=== PATIENT | male | born 1955 | race Caucasian/White ===

== ENCOUNTER 2016-06-17 11:16 | Emergency (ER) | payer OTHER ==
[2016-06-17 12:17] VITALS: RESP 18
--- NOTE | 2016-06-17 13:12 | ED ---
General Adult HPI - General Chief complaint: ENT Stated complaint: EAR CONGESTION Time Seen by Provider: 06/17/16 13:04 Source: patient, RN notes reviewed Mode of arrival: ambulatory Limitations: no limitations - History of Present Illness Initial comments: This is a 60-year-old male who presents with ear discomfort. Patient states he was sick with an upper respiratory infection last week and this has improved but he states his left ear feels like there is "wind blowing in it". Patient denies any otalgia or hearing loss or feeling of fullness in the ears. Patient denies any cough but admits to some mild lingering congestion.Patient denies any recent fever, chills, shortness breath, chest pain, abdominal pain, nausea/ vomiting/diarrhea, back pain, numbness, tingling, hematuria, headache, or visual changes, or any other complaints. - Related Data Home Medications Medication Instructions Recorded Confirmed Albuterol Inhaler [Ventolin Hfa 1 - 2 puff INHALATION Q6HR PRN 06/17/16 06/17/16 Inhaler] Previous Rx's Medication Instructions Recorded Fluticasone Nasal Marshall [Flonase 1 - 2 spray EA NOSTRIL DAILY #1 06/17/16 Nasal Marshall] bottle Allergies Allergy/AdvReac Type Severity Reaction Status Date / Time aspirin Allergy Swelling Verified 06/17/16 12:17 Review of Systems ROS Statement: Those systems with pertinent positive or pertinent negative responses have been documented in the HPI. ROS Other: All systems not noted in ROS Statement are negative. Past Medical History Past Medical History: No Reported History History of Any Multi-Drug Resistant Organisms: None Reported Past Surgical History: No Surgical Hx Reported Past Psychological History: No Psychological Hx Reported Smoking Status: Current every day smoker Past Alcohol Use History: None Reported Past Drug Use History: None Reported General Exam - General Exam Comments Initial Comments: General: The patient is awake and alert, in no distress, and does not appear acutely ill. Eye: Pupils are equal, round and reactive to light, extra-ocular movements are intact. No nystagmus. There is normal conjunctiva bilaterally. No signs of icterus. Ears: TMs pink and pearly with intact cone of light bilaterally. Normal external ear canals Nose: Nasal turbinates pink and moist Mouth and throat: There are moist mucous membranes and no oral lesions. Neck: The neck is supple, there is no tenderness or JVD. Cardiovascular: There is a regular rate and rhythm. No murmur, rub or gallop is appreciated. Respiratory: Lungs are clear to auscultation, respirations are non-labored, breath sounds are equal. No wheezes, stridor, rales, or rhonchi. Musculoskeletal: Normal ROM, no tenderness. Strength 5/5. Sensation intact. Radial pulses equal bilaterally 2+. Neurological: A&O x 3. CN II-XII intact, There are no obvious motor or sensory deficits. Coordination appears grossly intact. Speech is normal. Skin: Skin is warm and dry and no rashes or lesions are noted. Psychiatric: Cooperative, appropriate mood & affect, normal judgment. Limitations: no limitations Course Vital Signs 06/17/16 12:14 Temperature 98.2 F Pulse Rate 89 Respiratory 18 Rate Blood Pressure 163/85 O2 Sat by Pulse 96 Oximetry Medical Decision Making - Medical Decision Making This is a 60-year-old male who presents with left ear discomfort. On physical exam tympanic membranes are pink and pearly with intact cone of light bilaterally. Normal external ear canals. Patient is afebrile. I discussed grmi-etl-gzqqhbu decongestants and Flonase nasal spray to help with patient's symptoms. I discussed return parameters. Discussed that patient should follow up with PCP in one to 2 days or return to the [facility] for any worsening symptoms or for any further concerns. Patient was receptive to this plan and patient will be discharged home. Disposition Clinical Impression: Congestion of left ear Disposition: HOME SELF-CARE Condition: Good Instructions: Earache (ED) Additional Instructions: Please use Flonase nasal spray as prescribed. May use [id number] decongestants for additional symptom relief.Please use medication as discussed. Please follow-up with family doctor in the next 2 days of symptoms have not improved. Please return to emergency room if the symptoms increase or worsen or for any other concerns. Prescriptions: Fluticasone Nasal Marshall [Flonase Nasal Marshall] 1 - 2 spray EA NOSTRIL DAILY #1 bottle Referrals: Yaquelin Rao MD [Primary Care Provider] - 1-2 days Time of Disposition: 13:12
[2016-06-17 13:43] VITALS: BP 158/72; PULSE 78; TEMP 98
== END 2016-06-17 13:35 | disposition home or self-care (01) ==
LOC: EC 11:16
DX: H83.8X2 Other specified diseases of left inner ear (principal); Z88.6 Allergy status to analgesic agent; F17.200 Nicotine dependence, unspecified, uncomplicated
CPT/HCPCS: 99282

== ENCOUNTER 2016-07-13 17:17 | Emergency (ER) | payer OTHER ==
[2016-07-13 17:29] VITALS: BP 147/89; PULSE 88; RESP 18; TEMP 97
[2016-07-13] MEDS ORDERED: DIPH,PERTUS(ACELL)TETVAC-LF 0.5 ML VIAL IM ONE (17:43)
--- NOTE | 2016-07-13 17:47 | ED ---
Head Injury HPI - General Chief complaint: Head Injury Stated complaint: Head injury, [facility] Time Seen by Provider: 07/13/16 17:36 Source: patient Mode of arrival: ambulatory Limitations: no limitations - History of Present Illness Initial comments: 60-year-old male patient presents emergency Department after experiencing a headache injury at work. Patient states he was pushing down a large coil when it came back and struck him in the face. The patient was struck over the area of the right eye. Patient is complaining of a right-sided headache, but denies any other symptoms. Patient denies any loss of consciousness but states he was dazed for a short time after this. Patient denies any nausea, vomiting, neck pain, back pain, dizziness, weakness, chest pain, or shortness of breath. Patient also denies any visual disturbance, double vision, blurred vision, or floaters. Patient's last tetanus was 5 years ago. GCS is 15. Denies any use of anticoagulation. Place: work - Related Data Home Medications Medication Instructions Recorded Confirmed Albuterol Sulfate [Proair Hfa] 1 - 2 puff INHALATION RT-Q6H PRN 07/13/16 Ofloxacin 0.3% Otic Soln [Floxin 5 drops LEFT EAR BID 07/13/16 07/13/16 0.3% Otic Soln] Allergies/Adverse reactions: Allergies Allergy/AdvReac Type Severity Reaction Status Date / Time aspirin Allergy Swelling Verified 07/13/16 17:56 Review of Systems ROS Statement: Those systems with pertinent positive or pertinent negative responses have been documented in the HPI. ROS Other: All systems not noted in ROS Statement are negative. Past Medical History Past Medical History: No Reported History History of Any Multi-Drug Resistant Organisms: None Reported Past Surgical History: No Surgical Hx Reported Past Psychological History: No Psychological Hx Reported Smoking Status: Current every day smoker Past Alcohol Use History: None Reported Past Drug Use History: None Reported General Exam Limitations: no limitations General appearance: alert, in no apparent distress Head exam: Present: normocephalic, normal inspection. Absent: atraumatic (Soft tissue swelling over the right maxillary area, small abrasion to the right nasal bridge.) Eye exam: Present: normal appearance, PERRL, EOMI. Absent: scleral icterus, conjunctival injection, periorbital swelling ENT exam: Present: normal exam, normal oropharynx, mucous membranes moist Neck exam: Present: normal inspection, full ROM. Absent: tenderness, meningismus, lymphadenopathy Respiratory exam: Present: normal lung sounds bilaterally. Absent: respiratory distress, wheezes, rales, rhonchi, stridor Cardiovascular Exam: Present: regular rate, normal rhythm, normal heart sounds. Absent: systolic murmur, diastolic murmur, rubs, gallop, clicks Back exam: Present: normal inspection. Absent: tenderness Neurological exam: Present: alert, oriented X3, CN II-XII intact Psychiatric exam: Present: normal affect, normal mood Skin exam: Present: warm, dry, intact, normal color. Absent: rash Course Vital Signs 07/13/16 17:26 Temperature 97.0 F L Pulse Rate 88 Respiratory 18 Rate Blood Pressure 147/89 O2 Sat by Pulse 95 Oximetry Medical Decision Making - Medical Decision Making 6-year-old male patient presented for evaluation after head and facial injury. CT of the facial bones and brain were negative for any acute fracture or intracranial abnormality. Neuro exam was within normal limits. Patient will be discharged home with instructions to follow-up for recheck with [facility] services in 1-2 days. Patient also instructed to return for any new, worsening, or concerning symptoms. Patient's tetanus was updated. Patient instructed to take [id number] Tylenol for pain control. Patient instructed to remain home for the rest of the day, not to return to work until headache symptoms improve. Patient verbalizes understanding and agrees this plan. - Radiology Data Radiology results: report reviewed, image reviewed CT of the facial bones shows a margins are intact. Maxilla is intact. There is mild mucosal thickening in the ethmoid and sphenoid sinus. There is bilateral patency of the ostiomeatal complex. There is no sign a retro-orbital mass. The globes are symmetric. The zygomatic arches appear normal. Nasal bone is intact. CT of the brain without contrast shows no acute intracranial abnormality. Disposition Clinical Impression: Head injury, Facial injury, Abrasion of nose Disposition: HOME SELF-CARE Condition: Stable Instructions: Head Injury (ED) Additional Instructions: Follow-up for recheck with [facility] services if symptoms persist. Return for any new, worsening, or concerning symptoms. Referrals: Yaquelin Rao MD [Primary Care Provider] - 1-2 days Time of Disposition: 18:40
--- NOTE | 2016-07-13 18:28 | CT ---
EXAMINATION TYPE: CT brain wo con DATE OF EXAM: 07/13/2016 6:23 PM COMPARISON: NONE HISTORY: Trauma to the Right side of the face today. CT DLP: 1682 mGycm Automated exposure control for dose reduction was used. FINDINGS: Ventricles appear normal. There is no mass effect nor midline shift. There is no evidence of intracra nial hemorrhage. There is some mucosal thickening in the ethmoid sinus and sphenoid sinus. The calvar ium is intact. I see no fracture. IMPRESSION: There is evidence of sinusitis. Otherwise negative unenhanced head CT scan.
--- NOTE | 2016-07-13 18:30 | CT ---
EXAMINATION TYPE: CT facial bones wo con DATE OF EXAM: 07/13/2016 6:23 PM COMPARISON: NONE HISTORY: Trauma to the Right side of the face today. CT DLP: 1682 mGycm Automated exposure control for dose reduction was used. TECHNIQUE: CT scan of the sinuses is performed without contrast, axial images are obtained, coronal r eformatted images are also reviewed. FINDINGS: The orbital margins are intact. Maxilla is intact. There is mild mucosal thickening in the ethmoid and sphenoid sinus. There is bilateral patency of the osteal metal complex. There is no sign of retro-orbital mass. The globes are symmetric. The zygomatic arches appear normal. Nasal bone is in tact. Maxilla is intact. IMPRESSION: There is evidence for mild sinusitis. No fracture seen.
== END 2016-07-13 19:25 | disposition home or self-care (01) ==
LOC: EC 17:17
DX: S00.31XA Abrasion of nose, initial encounter (principal); S09.90XA Unspecified injury of head, initial encounter; F17.200 Nicotine dependence, unspecified, uncomplicated; Z23 Encounter for immunization; Z88.6 Allergy status to analgesic agent; W22.8XXA Striking against or struck by other objects, initial encounter; Y92.89 Other specified places as the place of occurrence of the external cause; Y99.0 Civilian activity done for income or pay
CPT/HCPCS: 70450; 70486; 90471; 90715; 99284

== ENCOUNTER 2017-01-11 19:43 | Emergency (ER) | payer OTHER ==
[2017-01-11 19:49] VITALS: RESP 18
[2017-01-11] MEDS ORDERED: SODIUM CHLORIDE 0.9% 1,000 ML IV STA ×2 (20:01)
[2017-01-11 20:24] LABS: Basophils # (A) 0.1 k/uL (0-0.2); Basophils % (A) 1 %; CH 31.7; CHCM 33.7; Eosinophils # (A) 0.2 k/uL (0-0.7); Eosinophils % (A) 3 %; HCT 48.2 % (39.0-53.0); HDW 2.54; HGB 16.1 gm/dL (13.0-17.5); Luc # (Auto) 0.21; Luc % (Auto) 2; Lymphocytes # (A) 3.1 k/uL (1.0-4.8); Lymphocytes % (A) 34 %; MCH 31.6 pg (25.0-35.0); MCHC 33.5 g/dL (31.0-37.0); MCV 94.3 fL (80.0-100.0); Mean Platelet Volume 6.8; Monocytes # (A) 0.4 k/uL (0-1.0); Monocytes % (A) 4 %; Neutrophils % (A) 56 %; RBC 5.11 m/uL (4.30-5.90); RDW 13.7 % (11.5-15.5); WBC (Perox) 8.23
--- NOTE | 2017-01-11 20:25 | ED ---
General Adult HPI - General Source: patient, RN notes reviewed, old records reviewed Mode of arrival: wheelchair Limitations: no limitations <Carloz Hartmann - Last Filed: 01/11/17 22:32> <Carloz Grimes - Last Filed: 01/11/17 23:06> - General Chief complaint: Dizziness Stated complaint: dizzy/off balance Time Seen by Provider: 01/11/17 19:59 - History of Present Illness Initial comments: This is a 61-year-old male to the ER for evaluation of dizziness. Patient states explains that this is as an episode of the room spinning around and he thought he was going to lose his balance. Patient has history of smoking and no other cardiac risk factors no history of stroke no history of heart disease. No recent trauma. Patient states his dizziness have been occasionally having on occasion for about the past month. Patient does admit to some inner ear issues and some up overall sinus issues and he seen an ENT in the past with no significant help to his issues. Patient denies nausea or vomiting. Denies headache. Denies any symptoms at this time (Carloz Hartmann) - Related Data Home Medications Medication Instructions Recorded Confirmed Albuterol Sulfate [Proair Hfa] 1 - 2 puff INHALATION RT-Q6H PRN 01/11/17 Previous Rx's Medication Instructions Recorded Amoxic-Pot Clav 875-125Mg 1 tab PO Q12HR #20 tablet 01/11/17 [Augmentin 875-125] Cetirizine HCl/Pseudoephedrine 1 each PO BID #20 tab.er.12h 01/11/17 [Zyrtec-D Tablet] Meclizine [Antivert] 25 mg PO TID PRN #30 tab 01/11/17 Allergies Allergy/AdvReac Type Severity Reaction Status Date / Time aspirin Allergy Swelling Verified 01/11/17 20:10 Review of Systems ROS Other: All systems not noted in ROS Statement are negative. <Carloz Hartmann - Last Filed: 01/11/17 22:32> ROS Other: All systems not noted in ROS Statement are negative. <Carloz Grimes - Last Filed: 01/11/17 23:06> ROS Statement: Those systems with pertinent positive or pertinent negative responses have been documented in the HPI. Past Medical History Past Medical History: No Reported History History of Any Multi-Drug Resistant Organisms: None Reported Past Surgical History: No Surgical Hx Reported Past Psychological History: No Psychological Hx Reported Smoking Status: Current every day smoker Past Alcohol Use History: None Reported Past Drug Use History: None Reported <Carloz Hartmann - Last Filed: 01/11/17 22:32> General Exam Limitations: no limitations General appearance: alert, in no apparent distress Head exam: Present: atraumatic, normocephalic, normal inspection Eye exam: Present: normal appearance, PERRL, EOMI. Absent: scleral icterus, conjunctival injection, periorbital swelling ENT exam: Present: normal exam, mucous membranes moist Neck exam: Present: normal inspection. Absent: tenderness, meningismus, lymphadenopathy Respiratory exam: Present: normal lung sounds bilaterally. Absent: respiratory distress, wheezes, rales, rhonchi, stridor Cardiovascular Exam: Present: regular rate, normal rhythm, normal heart sounds. Absent: systolic murmur, diastolic murmur, rubs, gallop, clicks GI/Abdominal exam: Present: soft, normal bowel sounds. Absent: distended, tenderness, guarding, rebound, rigid Extremities exam: Present: normal inspection, full ROM, normal capillary refill. Absent: tenderness, pedal edema, joint swelling, calf tenderness Back exam: Present: normal inspection Neurological exam: Present: alert, oriented X3, CN II-XII intact Psychiatric exam: Present: normal affect, normal mood Skin exam: Present: warm, dry, intact, normal color. Absent: rash <Carloz Hartmann - Last Filed: 01/11/17 22:32> Course <Carloz Hartmann - Last Filed: 01/11/17 22:32> <Carloz Grimes - Last Filed: 01/11/17 23:06> Vital Signs 01/11/17 01/11/17 01/11/17 19:46 20:25 21:18 Temperature 97 F L 97.2 F L Pulse Rate 89 68 70 Respiratory 18 18 18 Rate Blood Pressure 163/74 138/78 135/84 O2 Sat by Pulse 95 95 95 Oximetry 01/11/17 01/11/17 21:33 22:55 Temperature 97.5 F L Pulse Rate 64 73 Respiratory 18 18 Rate Blood Pressure 140/88 151/90 O2 Sat by Pulse 96 95 Oximetry - Reevaluation(s) Reevaluation #1: 01/11/17 20:24 We're able to get patient up to ambulate, no dizziness, able to walk without ataxia (Carloz Hartmann) EKG Findings - EKG Comments: EKG Findings:: EKG shows normal sinus rhythm rate of 73, WV 146, QRS 92, QTC 445 <Carloz Hartmann - Last Filed: 01/11/17 22:32> Medical Decision Making - Lab Data Result diagrams: 01/11/17 20:16 01/11/17 20:16 <Carloz Hartmann - Last Filed: 01/11/17 22:32> - Lab Data Result diagrams: 01/11/17 20:16 01/11/17 20:16 <Carloz Grimes - Last Filed: 01/11/17 23:06> - Medical Decision Making CT and CTA show no acute abnormalities. Patient is able to ambulate in the emergency department without problems. Patient has no symptoms currently. Patient wants to be discharged home to follow-up with his primary medical care doctor. (Carloz Grimes) - Lab Data Lab Results 01/11/17 01/11/17 01/11/17 Range/Units 20:16 20:16 20:16 WBC 9.0 (3.8-10.6) k/uL RBC 5.11 (4.30-5.90) m/uL Hgb 16.1 (13.0-17.5) gm/dL Hct 48.2 (39.0-53.0) % MCV 94.3 (80.0-100.0) fL MCH 31.6 (25.0-35.0) pg MCHC 33.5 (31.0-37.0) g/dL RDW 13.7 (11.5-15.5) % Plt Count 191 (150-450) k/uL Neutrophils % 56 % Lymphocytes % 34 % Monocytes % 4 % Eosinophils % 3 % Basophils % 1 % Neutrophils # 5.0 (1.3-7.7) k/uL Lymphocytes # 3.1 (1.0-4.8) k/uL Monocytes # 0.4 (0-1.0) k/uL Eosinophils # 0.2 (0-0.7) k/uL Basophils # 0.1 (0-0.2) k/uL PT (9.0-12.0) sec INR (<1.2) APTT (22.0-30.0) sec Sodium 137 (137-145) mmol/L Potassium 3.9 (3.5-5.1) mmol/L Chloride 104 (98-107) mmol/L Carbon Dioxide 19 L (22-30) mmol/L Anion Gap 14 mmol/L BUN 24 H (9-20) mg/dL Creatinine 1.13 (0.66-1.25) mg/dL Est GFR (MDRD) Af Amer >60 (>60 ml/min/1.73 sqM) Est GFR (MDRD) Non-Af >60 (>60 ml/min/1.73 sqM) Glucose 94 (74-99) mg/dL Calcium 9.4 (8.4-10.2) mg/dL Phosphorus 4.0 (2.5-4.5) mg/dL Magnesium 2.0 (1.6-2.3) mg/dL Total Bilirubin 0.2 (0.2-1.3) mg/dL AST 26 (17-59) U/L ALT 50 (21-72) U/L Alkaline Phosphatase 68 (38-126) U/L Total Creatine Kinase 115 (55-170) U/L CK-MB (CK-2) 1.4 (0.0-2.4) ng/mL CK-MB (CK-2) Rel Index 1.2 Troponin I <0.012 (0.000-0.034) ng/mL Total Protein 7.2 (6.3-8.2) g/dL Albumin 4.5 (3.5-5.0) g/dL TSH 2.940 (0.465-4.680) mIU/L 01/11/ Range/Units 20:16 WBC (3.8-10.6) k/uL RBC (4.30-5.90) m/uL Hgb (13.0-17.5) gm/dL Hct (39.0-53.0) % MCV (80.0-100.0) fL MCH (25.0-35.0) pg MCHC (31.0-37.0) g/dL RDW (11.5-15.5) % Plt Count (150-450) k/uL Neutrophils % % Lymphocytes % % Monocytes % % Eosinophils % % Basophils % % Neutrophils # (1.3-7.7) k/uL Lymphocytes # (1.0-4.8) k/uL Monocytes # (0-1.0) k/uL Eosinophils # (0-0.7) k/uL Basophils # (0-0.2) k/uL PT 10.6 (9.0-12.0) sec INR 1.0 (<1.2) APTT 23.3 (22.0-30.0) sec Sodium (137-145) mmol/L Potassium (3.5-5.1) mmol/L Chloride (98-107) mmol/L Carbon Dioxide (22-30) mmol/L Anion Gap mmol/L BUN (9-20) mg/dL Creatinine (0.66-1.25) mg/dL Est GFR (MDRD) Af Amer (>60 ml/min/1.73 sqM) Est GFR (MDRD) Non-Af (>60 ml/min/1.73 sqM) Glucose (74-99) mg/dL Calcium (8.4-10.2) mg/dL Phosphorus (2.5-4.5) mg/dL Magnesium (1.6-2.3) mg/dL Total Bilirubin (0.2-1.3) mg/dL AST (17-59) U/L ALT (21-72) U/L Alkaline Phosphatase (38-126) U/L Total Creatine Kinase (55-170) U/L CK-MB (CK-2) (0.0-2.4) ng/mL CK-MB (CK-2) Rel Index Troponin I (0.000-0.034) ng/mL Total Protein (6.3-8.2) g/dL Albumin (3.5-5.0) g/dL TSH (0.465-4.680) mIU/L Disposition <Carloz Hartmann - Last Filed: 01/11/17 22:32> Time of Disposition: 23:06 <Carloz Grimes - Last Filed: 01/11/17 23:06> Clinical Impression: Vertigo Disposition: HOME SELF-CARE Condition: Good Instructions: Vertigo (ED) Prescriptions: Amoxic-Pot Clav 875-125Mg [Augmentin 875-125] 1 tab PO Q12HR #20 tablet Cetirizine HCl/Pseudoephedrine [Zyrtec-D Tablet] 1 each PO BID #20 tab.er.12h Meclizine [Antivert] 25 mg PO TID PRN #30 tab PRN Reason: Vertigo Referrals: Yaquelin Rao MD [Primary Care Provider] - 1-2 days
[2017-01-11 20:30] LABS: Partial Thromboplastin Time 23.3 sec (22.0-30.0); Prothrombin Time 10.6 sec (9.0-12.0)
[2017-01-11 20:41] LABS: ALT 50 U/L (21-72); AST 26 U/L (17-59); Alkaline Phosphatase 68 U/L (38-126); Anion Gap 14 mmol/L; Blood Urea Nitrogen 24 mg/dL (9-20); Calcium 9.4 mg/dL (8.4-10.2); Carbon Dioxide 19 mmol/L (22-30); Chloride 104 mmol/L (98-107); Glucose 94 mg/dL (74-99); Non-African American GFR(MDRD) >60 (>60 ml/min/1.73 sqM); Potassium 3.9 mmol/L (3.5-5.1); Sodium 137 mmol/L (137-145); Total Bilirubin 0.2 mg/dL (0.2-1.3); Total Protein 7.2 g/dL (6.3-8.2)
[2017-01-11 20:47] LABS: Creatine Kinase 115 U/L (55-170)
[2017-01-11 21:00] LABS: Creatine Kinase MB 1.4 ng/mL (0.0-2.4); Troponin I <0.012 ng/mL (0.000-0.034)
[2017-01-11] MEDS ORDERED: RX INFO: IV CONTRAST WAS GIVEN 1 EACH MISC MISCELLANE PRN (21:49)
--- NOTE | 2017-01-11 22:50 | CT ---
EXAMINATION TYPE: CT brain wo con DATE OF EXAM: 01/11/2017 COMPARISON: 07/13/2016 HISTORY: Near syncopal episodes for the last two days without injury CT DLP: 1090.4 mGycm Automated exposure control for dose reduction was used. FINDINGS: Ventricles and sulci appear normal. There is no mass effect nor midline shift. There is no sign of in tracranial hemorrhage. The calvarium appears intact. There is mild mucosal thickening in the sphenoid and ethmoid sinuses. IMPRESSION: NEGATIVE CT SCAN OF THE BRAIN. SINUSITIS IS UNCHANGED COMPARED TO LAST EXAM.
--- NOTE | 2017-01-11 22:54 | CT ---
EXAMINATION TYPE: CT angio head neck DATE OF EXAM: 01/11/2017 HISTORY: Near syncopal episodes for the last two days without injury COMPARISON: NONE CT DLP: 416.5 mGycm. Automated Exposure Control for Dose Reduction was Utilized. TECHNIQUE: CTA scan of the neck is performed with IV Contrast, patient injected with 65 mL of Omnipa que 350, axial images are obtained, coronal and sagittal reformatted images are reviewed. Three-D rec onstructed images are created on an independent workstation and reviewed. FINDINGS: There is normal branching pattern of the great vessels on the aortic arch. There is bilateral arteria l flow in the vertebral arteries. There is arterial flow in the common internal and external carotid arteries bilaterally. There is some mild plaque formation at the right carotid artery bifurcation. Th ere is minimal plaque also at the left carotid artery bifurcation. There is lumen narrowing of 10-15% at the origins of both internal carotid arteries. There is no evidence of dissection. There is arterial flow in the anterior middle and posterior cerebral arteries. There is arterial flow in the vertebrobasilar artery system. Left vertebral artery is larger than the right. There is no ma ss effect. There is normal contrast opacification of the venous sinuses. There is no evidence of intr acranial aneurysm or stenosis. CONCLUSION: Minimal plaque formation at the carotid artery bifurcations with 10-15% stenosis. Otherwise negative CT angiogram of the neck. Negative CT angiogram of the brain.
[2017-01-11 22:57] VITALS: BP 151/90; PULSE 73; TEMP 97.5
== END 2017-01-11 23:13 | disposition home or self-care (01) ==
LOC: EC 19:43
DX: R42 Dizziness and giddiness (principal); F17.200 Nicotine dependence, unspecified, uncomplicated; Z88.6 Allergy status to analgesic agent
CPT/HCPCS: 99285 ×2; 96360 ×2; 96361 ×3; 36415; 93005; 80053; 82550; 82553; 83735; 84100; 84443; 84484; 85025; 85610; 85730; 70496; 70450; 70498; Q9967

== ENCOUNTER 2020-12-16 11:51 | Emergency (ER) | payer MEDICARE, OTHER ==
[2020-12-16] MEDS ORDERED: DIPH,PERTUS(ACELL)TETVAC-LF 0.5 ML VIAL IM ONE (12:22)
--- NOTE | 2020-12-16 12:25 | ED ---
General Adult HPI - General Source: patient, RN notes reviewed Mode of arrival: ambulatory Limitations: no limitations <Neel Lanier - Last Filed: 12/16/20 12:23> - General Source: patient, RN notes reviewed <Roe Delarosa - Last Filed: 12/16/20 16:11> - General Stated complaint: Finger lac Time Seen by Provider: 12/16/20 12:17 - History of Present Illness Initial comments: 65-year-old male presents emergency Department with chief complaint of left hand second digit laceration. Patient states that he was using a saw the board kicked causing him to cut his finger. He is unsure when his last tetanus was. Patient states she has full range of motion he has some throbbing pain. Patient offers no other complaints. Patient is right-hand dominant. (Neel Lanier) Well-appearing 65-year-old male gentleman that presents to the emergency room with complaints of lacerating his left index finger on a saw today. He states that he did irrigate the wound at home and used peroxide. He has full range of motion with the finger. He denies any other injuries. He states that he recently recovering from a covid in his primary care doctor has prescribed him an inhaler which he keeps with him. He denies any chest pain or shortness of breath. (Roe Delarosa) - Related Data Home Medications Medication Instructions Recorded Confirmed Albuterol Sulfate [Proair Hfa] 1 - 2 puff INHALATION RT-Q6H PRN 01/11/17 01/11/17 Previous Rx's Medication Instructions Recorded Amoxic-Pot Clav 875-125Mg 1 tab PO Q12HR #20 tablet 01/11/17 [Augmentin 875-125] Cetirizine HCl/Pseudoephedrine 1 each PO BID #20 tab.er.12h 01/11/17 [Zyrtec-D Tablet] Meclizine [Antivert] 25 mg PO TID PRN #30 tab 01/11/17 Cephalexin [Keflex] 500 mg PO Q6HR 5 Days #20 cap 12/16/20 Allergies Allergy/AdvReac Type Severity Reaction Status Date / Time aspirin Allergy Swelling Verified 12/16/20 12:22 Review of Systems ROS Other: All systems not noted in ROS Statement are negative. <Dedoe,Neel M - Last Filed: 12/16/20 12:23> ROS Other: All systems not noted in ROS Statement are negative. <Roe Delarosa - Last Filed: 12/16/20 16:11> ROS Statement: Those systems with pertinent positive or pertinent negative responses have been documented in the HPI. Past Medical History Past Medical History: No Reported History History of Any Multi-Drug Resistant Organisms: None Reported Past Surgical History: No Surgical Hx Reported Past Psychological History: No Psychological Hx Reported Past Alcohol Use History: None Reported Past Drug Use History: None Reported <ZachsherlyNeel - Last Filed: 12/16/20 12:23> General Exam General appearance: alert, in no apparent distress Head exam: Present: atraumatic, normocephalic, normal inspection Eye exam: Present: normal appearance, PERRL, EOMI. Absent: scleral icterus, conjunctival injection, periorbital swelling ENT exam: Present: normal exam, normal oropharynx, mucous membranes moist Neck exam: Present: full ROM Respiratory exam: Present: normal lung sounds bilaterally (Occasional wheeze). Absent: respiratory distress, wheezes, rales, rhonchi, stridor Cardiovascular Exam: Present: regular rate, normal rhythm, normal heart sounds. Absent: systolic murmur, diastolic murmur, rubs, gallop, clicks Left Hand Wrist exam: Present: tenderness, laceration (1 cm skin avulsion to the patient's left index finger medial aspect). Absent: deformity, erythema, amputation, subungual hematoma Vascular: Present: normal capillary refill. Absent: vascular compromise Neurological exam: Present: alert, oriented X3, normal gait Psychiatric exam: Present: normal affect, normal mood Skin exam: Present: warm, dry, intact, normal color. Absent: rash <Roe Delarosa - Last Filed: 12/16/20 16:11> Course Vital Signs 12/16/20 12/16/20 12:22 15:47 Temperature 97.9 F Pulse Rate 89 81 Respiratory 18 18 Rate Blood Pressure 157/104 165/87 O2 Sat by Pulse 93 L 95 Oximetry Medical Decision Making <Roe Delarosa - Last Filed: 12/16/20 16:11> - Medical Decision Making Patient's tetanus shot was updated at this visit. X-ray was negative for fracture. He did cleanse the wound prior to arrival in the emergency room with water and peroxide. Due to the loss of tissue there is no way to approximate the wound. There was Gelfoam applied and a nonadherent dressing. He will be prescribed antibiotics and follow up with his primary care doctor. His blood pressure was elevated at this visit. He states he does not have high blood pressure. He states he does see Dr. Maxwell has never had elevated blood pressure in the past. He was directed to follow up with Dr. Maxwell for elevation of elevated blood pressure in the emergency room today. Case discussed with Dr. Louis (Roe Delaroas) Disposition <Neel Lanier - Last Filed: 12/16/20 12:23> Is patient prescribed a controlled substance at d/c from ED?: No <Roe Delarosa - Last Filed: 12/16/20 16:11> Clinical Impression: Laceration Disposition: HOME SELF-CARE Condition: Good Instructions (If sedation given, give patient instructions): Finger Laceration (ED) Additional Instructions: Take antibiotics as prescribed. Keep your finger clean and dry. Follow-up with your primary care doctor in 1 week. Return to the emergency room with any new or worsening symptoms including pain, signs of infection including drainage, redness or fever. Prescriptions: Cephalexin [Keflex] 500 mg PO Q6HR 5 Days #20 cap Referrals: None,Stated [REFERRING] - 1-2 days
[2020-12-16 12:26] VITALS: RESP 18; TEMP 97.9
--- NOTE | 2020-12-16 13:57 | XR ---
EXAMINATION TYPE: XR finger LT DATE OF EXAM: 12/16/2020 CLINICAL HISTORY: pain Left second digit. TECHNIQUE: 3 views of the Left second digit are submitted. COMPARISON: None FINDINGS: No displaced fracture is seen with certainty. Joint spaces are well-preserved. Soft tissue laceration noted without radiopaque foreign body. IMPRESSION: No acute displaced fracture or dislocation.
[2020-12-16] MEDS: LIDOCAINE 1% INJ 10MG/ML (20 ML MDV) SQ ONE ×2 (14:44→15:52)
[2020-12-16] MEDS ORDERED: GELATIN SPONGE,ABSORB (SMALL) 1 EACH SPONGE TOPICAL STA (15:22)
[2020-12-16 15:52] VITALS: BP 165/87; PULSE 81
== END 2020-12-16 15:48 | disposition home or self-care (01) ==
LOC: EC 11:51
DX: S61.211A Laceration without foreign body of left index finger without damage to nail, initial encounter (principal); W31.2XXA Contact with powered woodworking and forming machines, initial encounter; Z23 Encounter for immunization
CPT/HCPCS: 90471; 90715; 99282

== ENCOUNTER 2022-12-10 22:47 | Emergency (ER) | payer MEDICARE ==
[2022-12-10] MEDS ORDERED: ALBUTEROL NEBULIZED 2.5 MG/3 ML INHALATION STA (23:24)
[2022-12-10] MEDS ORDERED: dexAMETHasone 2 MG TAB PO STA (23:24)
[2022-12-10] MEDS ORDERED: IPRATROPIUM 0.5 MG/2.5 ML NEBU INHALATION STA (23:24)
--- NOTE | 2022-12-10 23:53 | XR ---
EXAM: XR Chest, 2 Views CLINICAL HISTORY: ITS.REASON XR Reason: CP TECHNIQUE: Frontal and lateral views of the chest. COMPARISON: No relevant prior studies available. FINDINGS: Lungs: Unremarkable. No consolidation. Pleural space: Unremarkable. No pneumothorax. Heart: Unremarkable. No cardiomegaly. Mediastinum: Unremarkable. Bones/joints: Unremarkable. IMPRESSION: Normal chest x-rays.
--- NOTE | 2022-12-11 00:51 | ED ---
General Adult HPI - General Chief complaint: Upper Respiratory Infection Stated complaint: congestion Time Seen by Provider: 12/10/22 22:58 Source: patient Mode of arrival: ambulatory Limitations: no limitations - History of Present Illness Initial comments: This is a 67-year-old male with no past medical history presents emergency department for a cough and congestion. The patient stated that on he experienced a head cold and he did see his private care physician where he was given levofloxacin as well as a Medrol Dosepak for possible pneumonia. The patient did state that he had continued coughing and therefore came to the emergency department for evaluation. The patient denied any fevers, chills as well as any nausea and vomiting. The patient did state that he had some mild wheezing while laying flat but stated that it improved with an albuterol inhaler. The patient denied any other recent sick contacts. - Related Data Home Medications Medication Instructions Recorded Confirmed Albuterol Sulfate [Proair Hfa] 1 - 2 puff INHALATION RT-Q6H PRN 01/11/17 01/11/17 Previous Rx's Medication Instructions Recorded Amoxic-Pot Clav 875-125Mg 1 tab PO Q12HR #20 tablet 01/11/17 [Augmentin 875-125] Cetirizine HCl/Pseudoephedrine 1 each PO BID #20 tab.er.12h 01/11/17 [Zyrtec-D Tablet] Meclizine [Antivert] 25 mg PO TID PRN #30 tab 01/11/17 Cephalexin [Keflex] 500 mg PO Q6HR 5 Days #20 cap 12/16/20 dexAMETHasone [Decadron] 10 mg PO ONCE #2.5 tab 12/11/22 Allergies Allergy/AdvReac Type Severity Reaction Status Date / Time aspirin Allergy Swelling Verified 12/10/22 22:54 Review of Systems ROS Statement: Those systems with pertinent positive or pertinent negative responses have been documented in the HPI. ROS Other: All systems not noted in ROS Statement are negative. Past Medical History Past Medical History: No Reported History History of Any Multi-Drug Resistant Organisms: None Reported Past Surgical History: No Surgical Hx Reported Past Psychological History: No Psychological Hx Reported Smoking Status: Current every day smoker Past Alcohol Use History: Occasional Past Drug Use History: None Reported General Exam Limitations: no limitations General appearance: alert, in no apparent distress Head exam: Present: atraumatic, normocephalic, normal inspection Eye exam: Present: normal appearance, PERRL Pupils: Present: normal accommodation ENT exam: Present: normal exam, normal oropharynx, mucous membranes moist Neck exam: Present: normal inspection, full ROM Respiratory exam: Present: wheezes (Mild expiratory wheezes heard bilaterally) Cardiovascular Exam: Present: regular rate, normal rhythm, normal heart sounds GI/Abdominal exam: Present: soft, normal bowel sounds Extremities exam: Present: normal inspection, full ROM Back exam: Present: normal inspection, full ROM Neurological exam: Present: alert, oriented X3, CN II-XII intact Psychiatric exam: Present: normal affect, normal mood Skin exam: Present: warm, dry Course Vital Signs 12/10/22 12/10/22 12/10/22 22:52 23:33 23:51 Temperature 97.8 F Pulse Rate 91 77 Respiratory 18 19 Rate Blood Pressure 190/94 O2 Sat by Pulse 94 L Oximetry 12/11/22 00:21 Temperature Pulse Rate 74 Respiratory Rate Blood Pressure O2 Sat by Pulse Oximetry Medical Decision Making - Medical Decision Making Was pt. sent in by a medical professional or institution (, PA, ELECTRON MICROPROBE OPERATOR, urgent care, hospital, or senior living...) When possible be specific @ -No Did you speak to anyone other than the patient for history (EMS, parent, family, police, friend...)? What history was obtained from this source @ -No Did you review nursing and triage notes (agree or disagree)? Why? @ -I reviewed and agree with nursing and triage notes Were old charts reviewed (outside hosp., previous admission, EMS record, old EKG, old radiological studies, urgent care reports/EKG's, senior living records)? Report findings @ -No old charts were reviewed Differential Diagnosis (chest pain, altered mental status, abdominal pain women, abdominal pain men, vaginal bleeding, weakness, fever, dyspnea, syncope, headache, dizziness, GI bleed, back pain, seizure, CVA, palpatations, mental health)? @ -Pneumonia, pneumothorax, URI EKG interpreted by me (3pts min.). @ -None X-rays interpreted by me (1pt min.). @ -Chest x-ray was obtained and was interpreted by myself showing no acute process. CT interpreted by me (1pt min.). @ -None done U/S interpreted by me (1pt. min.). @ -None done What testing was considered but not performed or refused? (CT, X-rays, U/S, labs)? Why? @ -None What meds were considered but not given or refused? Why? @ -None Did you discuss the management of the patient with other professionals (professionals i.e. Dr., PA, ELECTRON MICROPROBE OPERATOR, lab, RT, psych nurse, geriatric social worker, customer solutions representative, teacher, security officer, therapeutic case manager)? Give summary @ -No Was smoking cessation discussed for >3mins.? @ -Yes Was critical care preformed (if so, how long)? @ -No Were there social determinants of health that impacted care today? How? (Homelessness, low income, unemployed, alcoholism, drug addiction, transportation, low edu. Level, literacy, decrease access to med. care, fpc, rehab)? @ -No Was there de-escalation of care discussed even if they declined (Discuss DNR or withdrawal of care, Hospice)? DNR status @ -No What co-morbidities impacted this encounter? (DM, HTN, Smoking, COPD, CAD, Cancer, CVA, ARF, Chemo, Hep., AIDS, mental health diagnosis, sleep apnea, morbid obesity)? @ -None Was patient admitted / discharged? Hospital course, mention meds given and route, prescriptions, significant lab abnormalities, going to OR and other pertinent info. @ -The patient was seen and evaluated emergency department. Physical exam, the patient was resting in bed without any acute distress. Vital signs admission were stable. Due to the nature the patient's complaints, swabs for COVID-19, influenza and RSV were obtained as was a chest x-ray. All workup was negative and the patient did have some minor wheezing on evaluation likely indicating bronchitis secondary to a URI. The patient was given a dose of Decadron as well as albuterol and ipratropium in the emergency department on reevaluation had significant improvement of his symptoms. The patient continued to remain stable and was stable for discharge home. The patient did already have an albuterol inhaler at home but was given a second dose of Decadron as a prescription. The patient was advised to take his medication as prescribed and report back to the emergency department if his pain and symptoms became acutely worse. The patient was agreeable to this and all of his questions were answered. The patient was discharged home in stable condition. Undiagnosed new problem with uncertain prognosis? @ -No Drug Therapy requiring intensive monitoring for toxicity (Heparin, Nitro, Insulin, Cardizem)? @ -No Were any procedures done? @ -No Diagnosis/symptom? @ -Bronchitis likely secondary to URI Acute, or Chronic, or Acute on Chronic? @ -Acute Uncomplicated (without systemic symptoms) or Complicated (systemic symptoms)? @ -Uncomplicated Side effects of treatment? @ -No Exacerbation, Progression, or Severe Exacerbation? @ -No Poses a threat to life or bodily function? How? (Chest pain, [place], [place], pneumonia, PE, COPD, DKA, ARF, appy, cholecystitis, CVA, Diverticulitis, Homicidal, Suicidal, threat to staff... and all critical care pts) @ -No - Lab Data Lab Results 12/10/22 Range/Units 23:31 Influenza Type A (PCR) Not Detected (Not Detectd) Influenza Type B (PCR) Not Detected (Not Detectd) RSV (PCR) Not Detected (Not Detectd) SARS-CoV-2 (PCR) Not Detected (Not Detectd) Disposition Clinical Impression: Bronchitis Disposition: HOME SELF-CARE Condition: Stable Instructions (If sedation given, give patient instructions): Acute Bronchitis (ED) Prescriptions: dexAMETHasone [Decadron] 10 mg PO ONCE #2.5 tab Is patient prescribed a controlled substance at d/c from ED?: No Referrals: Justine Maxwell MD [Primary Care Provider] - 1-2 days Time of Disposition: 00:30
[2022-12-11 01:08] VITALS: BP 156/78; PULSE 79; RESP 17; TEMP 98.2
== END 2022-12-11 01:07 | disposition home or self-care (01) ==
LOC: EC 22:47
DX: J40 Bronchitis, not specified as acute or chronic (principal); F17.200 Nicotine dependence, unspecified, uncomplicated; Z88.6 Allergy status to analgesic agent; Z20.822 Contact with and (suspected) exposure to COVID-19
CPT/HCPCS: 94640; 87636; 71046; 99284; J8540

== ENCOUNTER 2022-12-14 08:51 | Inpatient (IN) | payer MEDICARE ==
[2022-12-14] MEDS ORDERED: IPRATROPIUM 0.5 MG/2.5 ML NEBU INHALATION STA (09:08)
[2022-12-14] MEDS ORDERED: ALBUTEROL NEBULIZED 2.5 MG/3 ML INHALATION STA (09:08)
[2022-12-14] MEDS ORDERED: methylPREDNISolone SOD SUCCI 125 MG/2 ML VIAL IV STA (09:08)
--- NOTE | 2022-12-14 09:13 | ED ---
General Adult HPI - General Chief complaint: Shortness of Breath Stated complaint: O2 Issue Time Seen by Provider: 12/14/22 09:00 Source: patient, RN notes reviewed, old records reviewed Mode of arrival: ambulatory Limitations: no limitations - History of Present Illness Initial comments: This is a 67-year-old male who continued to smoke. Patient states last he went to see his primary medical care doctor and was told he had bronchitis was given Levaquin. Patient states took one pill he felt a burning in his stomach and so he never took another pill. Patient states Wednesday he came to the emergency department he was checked out for COVID and influenza he was negative. Patient states he had breathing treatments and steroids and he was feeling little bit better. Patient states since then he slowly started to feel worse again and this morning he was very short of breath she went to another urgent care and they sent him into the emergency department to be further evaluated. Patient denies any chest pain or palpitations. Patient denies any fever chills. Patient states he does have quite a bit of a cough and coughing up quite a bit of sputum. Patient states currently is not on any steroids or antibiotics. - Related Data Home Medications Medication Instructions Recorded Confirmed Albuterol Sulfate [Proair Hfa] 1 - 2 puff INHALATION RT-Q6H PRN 01/11/17 01/11/17 Previous Rx's Medication Instructions Recorded Amoxic-Pot Clav 875-125Mg 1 tab PO Q12HR #20 tablet 01/11/17 [Augmentin 875-125] Cetirizine HCl/Pseudoephedrine 1 each PO BID #20 tab.er.12h 01/11/17 [Zyrtec-D Tablet] Meclizine [Antivert] 25 mg PO TID PRN #30 tab 01/11/17 Cephalexin [Keflex] 500 mg PO Q6HR 5 Days #20 cap 12/16/20 dexAMETHasone [Decadron] 10 mg PO ONCE #2.5 tab 12/11/22 Allergies Allergy/AdvReac Type Severity Reaction Status Date / Time aspirin Allergy Swelling Verified 12/14/22 08:57 Review of Systems ROS Statement: Those systems with pertinent positive or pertinent negative responses have been documented in the HPI. ROS Other: All systems not noted in ROS Statement are negative. Past Medical History Past Medical History: No Reported History History of Any Multi-Drug Resistant Organisms: None Reported Past Surgical History: No Surgical Hx Reported Past Psychological History: No Psychological Hx Reported Smoking Status: Current every day smoker Past Alcohol Use History: Occasional Past Drug Use History: None Reported General Exam - General Exam Comments Initial Comments: GENERAL: Patient is well-developed and well-nourished. Patient is nontoxic and well- hydrated and is in moderate distress. ENT: Neck is soft and supple. No significant lymphadenopathy is noted. Oropharynx is clear. Moist mucous membranes. Neck has full range of motion without eliciting any pain. EYES: The sclera were anicteric and conjunctiva were pink and moist. Extraocular movements were intact and pupils were equal round and reactive to light. Eyelids were unremarkable. PULMONARY: Patient has diminished breath sounds diffusely with some expiratory wheezing CARDIOVASCULAR: There is a regular rate and rhythm without any murmurs gallops or rubs. ABDOMEN: Soft and nontender with normal bowel sounds. SKIN: Skin is clear with no lesions or rashes and otherwise unremarkable. NEUROLOGIC: Patient is alert and oriented x3. Cranial nerves II through XII are grossly intact. Motor and sensory are also intact. Normal speech, volume and content. Symmetrical smile. MUSCULOSKELETAL: Normal extremities with adequate strength and full range of motion. No lower extremity swelling or edema. No calf tenderness. LYMPHATICS: No significant lymphadenopathy is noted PSYCHIATRIC: Normal psychiatric evaluation. Limitations: no limitations Course Vital Signs 12/14/22 12/14/22 12/14/22 08:53 09:15 09:49 Temperature 98.4 F Pulse Rate 69 80 70 Respiratory 22 20 18 Rate Blood Pressure 173/82 179/97 O2 Sat by Pulse 91 L 92 L Oximetry 12/14/22 12/14/22 09:59 10:00 Temperature Pulse Rate 76 79 Respiratory 18 20 Rate Blood Pressure 179/79 O2 Sat by Pulse 96 Oximetry Medical Decision Making - Medical Decision Making EKG as interpreted by myself. EKG shows a sinus rhythm at 72 bpm WI interval 170 QRS is 86 QT interval 370 QTC is 395. Patient's EKG shows no ST segment elevation or depression. Was pt. sent in by a medical professional or institution (, PA, PROOF CARRIER, urgent care, hospital, or alf...) When possible be specific @ -Patient was sent in by the urgent care Did you speak to anyone other than the patient for history (EMS, parent, family, police, friend...)? What history was obtained from this source @ -No Did you review nursing and triage notes (agree or disagree)? Why? @ -I reviewed and agree with nursing and triage notes Were old charts reviewed (outside hosp., previous admission, EMS record, old EKG, old radiological studies, urgent care reports/EKG's, alf records)? Report findings @ -I reviewed prior charts prior labwork on this patient Differential Diagnosis (chest pain, altered mental status, abdominal pain women, abdominal pain men, vaginal bleeding, weakness, fever, dyspnea, syncope, he adache, dizziness, GI bleed, back pain, seizure, CVA, palpatations, mental health, musculoskeletal)? @ -Differential Dyspnea: Coronary syndrome, arrhythmia, tamponade, asthma, COPD, pulmonary embolism, pneumonia, pneumothorax, pulmonary effusion, anaphylaxis, diabetic ketoacidosis, flailed chest, pulmonary contusion, diaphragmatic rupture, anemia, neuromuscular, this is not meant to be an all-inclusive list. EKG interpreted by me (3pts min.). @ -As above X-rays interpreted by me (1pt min.). @ -Chest x-ray showed no acute abnormality CT interpreted by me (1pt min.). @ -None done U/S interpreted by me (1pt. min.). @ -None done What testing was considered but not performed or refused? (CT, X-rays, U/S, labs)? Why? @ -None What meds were considered but not given or refused? Why? @ -None Did you discuss the management of the patient with other professionals (professionals i.e. , PA, PROOF CARRIER, lab, RT, psych nurse, pediatric social worker, counter installer, teacher, operations officer trust department, gearcase assembler)? Give summary @ -I spoke with the [facility] they agreed to admit the patient admitted the patient I wrote admitting orders Was smoking cessation discussed for >3mins.? @ -No Was critical care preformed (if so, how long)? @ -No Were there social determinants of health that impacted care today? How? (Homelessness, low income, unemployed, alcoholism, drug addiction, transportation, low edu. Level, literacy, decrease access to med. care, long term, rehab)? @ -No Was there de-escalation of care discussed even if they declined (Discuss DNR or withdrawal of care, Hospice)? DNR status @ -No What co-morbidities impacted this encounter? (DM, HTN, Smoking, COPD, CAD, Cancer, CVA, ARF, Chemo, Hep., AIDS, mental health diagnosis, sleep apnea, morbid obesity)? @ -None Was patient admitted / discharged? Hospital course, mention meds given and route, prescriptions, significant lab abnormalities, going to OR and other pertinent info. @ -Patient was given 2 breathing treatments while in the emergency department patient was also given steroids and was feeling a little better. Patient also started on antibiotics. Undiagnosed new problem with uncertain prognosis? @ -No Drug Therapy requiring intensive monitoring for toxicity (Heparin, Nitro, Insulin, Cardizem)? @ -No Were any procedures done? @ -No Diagnosis/symptom? @ -COPD exacerbation Acute, or Chronic, or Acute on Chronic? @ -Acute Uncomplicated (without systemic symptoms) or Complicated (systemic symptoms)? @ -Complicated Side effects of treatment? @ -No Exacerbation, Progression, or Severe Exacerbation? @ -Exacerbation Poses a threat to life or bodily function? How? (Chest pain, USA, MA, pneumonia, PE, COPD, DKA, ARF, appy, cholecystitis, CVA, Diverticulitis, Homicidal, Suicidal, threat to staff... and all critical care pts) @ -Yes this could lead to hypoxia and end organ dysfunction - Lab Data Result diagrams: 12/14/22 09:20 12/14/22 09:20 Lab Results 12/14/22 12/14/22 12/14/22 Range/Units 09:20 09:20 09:20 WBC 13.1 H (3.8-10.6) k/uL RBC 5.44 (4.30-5.90) m/uL Hgb 17.2 (13.0-17.5) gm/dL Hct 52.0 (39.0-53.0) % MCV 95.5 (80.0-100.0) fL MCH 31.6 (25.0-35.0) pg MCHC 33.1 (31.0-37.0) g/dL RDW 13.7 (11.5-15.5) % Plt Count 239 (150-450) k/uL MPV 7.3 Neutrophils % 61 % Lymphocytes % 30 % Monocytes % 5 % Eosinophils % 3 % Basophils % 1 % Neutrophils # 8.0 H (1.3-7.7) k/uL Lymphocytes # 3.9 (1.0-4.8) k/uL Monocytes # 0.7 (0-1.0) k/uL Eosinophils # 0.4 (0-0.7) k/uL Basophils # 0.1 (0-0.2) k/uL PT 11.0 (9.0-12.0) sec INR 1.1 (<1.2) APTT 25.6 (22.0-30.0) sec D-Dimer (<0.60) mg/L FEU Sodium 134 L (137-145) mmol/L Potassium 4.1 (3.5-5.1) mmol/L Chloride 103 (98-107) mmol/L Carbon Dioxide 24 (22-30) mmol/L Anion Gap 7 mmol/L BUN 23 H (9-20) mg/dL Creatinine 0.93 (0.66-1.25) mg/dL Est GFR (CKD-EPI)AfAm >90 (>60 ml/min/1.73 sqM) Est GFR (CKD-EPI)NonAf 85 (>60 ml/min/1.73 sqM) Glucose 122 H (74-99) mg/dL Plasma Lactic Acid Catarino (0.7-2.0) mmol/L Calcium 8.9 (8.4-10.2) mg/dL Magnesium 2.0 (1.6-2.3) mg/dL Total Bilirubin 0.7 (0.2-1.3) mg/dL AST 30 (17-59) U/L ALT 39 (4-49) U/L Alkaline Phosphatase 73 (38-126) U/L Troponin I (0.000-0.034) ng/mL NT-Pro-B Natriuret Pep <20 pg/mL Total Protein 6.8 (6.3-8.2) g/dL Albumin 4.0 (3.5-5.0) g/dL Influenza Type A (PCR) (Not Detectd) Influenza Type B (PCR) (Not Detectd) RSV (PCR) (Not Detectd) SARS-CoV-2 (PCR) (Not Detectd) 12/14/22 12/14/22 12/14/22 Range/Units 09:20 09:20 09:20 WBC (3.8-10.6) k/uL RBC (4.30-5.90) m/uL Hgb (13.0-17.5) gm/dL Hct (39.0-53.0) % MCV (80.0-100.0) fL MCH (25.0-35.0) pg MCHC (31.0-37.0) g/dL RDW (11.5-15.5) % Plt Count (150-450) k/uL MPV Neutrophils % % Lymphocytes % % Monocytes % % Eosinophils % % Basophils % % Neutrophils # (1.3-7.7) k/uL Lymphocytes # (1.0-4.8) k/uL Monocytes # (0-1.0) k/uL Eosinophils # (0-0.7) k/uL Basophils # (0-0.2) k/uL PT (9.0-12.0) sec INR (<1.2) APTT (22.0-30.0) sec D-Dimer (<0.60) mg/L FEU Sodium (137-145) mmol/L Potassium (3.5-5.1) mmol/L Chloride (98-107) mmol/L Carbon Dioxide (22-30) mmol/L Anion Gap mmol/L BUN (9-20) mg/dL Creatinine (0.66-1.25) mg/dL Est GFR (CKD-EPI)AfAm (>60 ml/min/1.73 sqM) Est GFR (CKD-EPI)NonAf (>60 ml/min/1.73 sqM) Glucose (74-99) mg/dL Plasma Lactic Acid Catarino 1.6 (0.7-2.0) mmol/L Calcium (8.4-10.2) mg/dL Magnesium (1.6-2.3) mg/dL Total Bilirubin (0.2-1.3) mg/dL AST (17-59) U/L ALT (4-49) U/L Alkaline Phosphatase (38-126) U/L Troponin I <0.012 (0.000-0.034) ng/mL NT-Pro-B Natriuret Pep pg/mL Total Protein (6.3-8.2) g/dL Albumin (3.5-5.0) g/dL Influenza Type A (PCR) Not Detected (Not Detectd) Influenza Type B (PCR) Not Detected (Not Detectd) RSV (PCR) Not Detected (Not Detectd) SARS-CoV-2 (PCR) Not Detected (Not Detectd) 12/14/22 Range/Units 09:20 WBC (3.8-10.6) k/uL RBC (4.30-5.90) m/uL Hgb (13.0-17.5) gm/dL Hct (39.0-53.0) % MCV (80.0-100.0) fL MCH (25.0-35.0) pg MCHC (31.0-37.0) g/dL RDW (11.5-15.5) % Plt Count (150-450) k/uL MPV Neutrophils % % Lymphocytes % % Monocytes % % Eosinophils % % Basophils % % Neutrophils # (1.3-7.7) k/uL Lymphocytes # (1.0-4.8) k/uL Monocytes # (0-1.0) k/uL Eosinophils # (0-0.7) k/uL Basophils # (0-0.2) k/uL PT (9.0-12.0) sec INR (<1.2) APTT (22.0-30.0) sec D-Dimer 0.32 (<0.60) mg/L FEU Sodium (137-145) mmol/L Potassium (3.5-5.1) mmol/L Chloride (98-107) mmol/L Carbon Dioxide (22-30) mmol/L Anion Gap mmol/L BUN (9-20) mg/dL Creatinine (0.66-1.25) mg/dL Est GFR (CKD-EPI)AfAm (>60 ml/min/1.73 sqM) Est GFR (CKD-EPI)NonAf (>60 ml/min/1.73 sqM) Glucose (74-99) mg/dL Plasma Lactic Acid Catarino (0.7-2.0) mmol/L Calcium (8.4-10.2) mg/dL Magnesium (1.6-2.3) mg/dL Total Bilirubin (0.2-1.3) mg/dL AST (17-59) U/L ALT (4-49) U/L Alkaline Phosphatase (38-126) U/L Troponin I (0.000-0.034) ng/mL NT-Pro-B Natriuret Pep pg/mL Total Protein (6.3-8.2) g/dL Albumin (3.5-5.0) g/dL Influenza Type A (PCR) (Not Detectd) Influenza Type B (PCR) (Not Detectd) RSV (PCR) (Not Detectd) SARS-CoV-2 (PCR) (Not Detectd) Disposition Clinical Impression: Acute exacerbation of chronic obstructive pulmonary disease Disposition: ADMITTED IP TO THIS HOSP Referrals: None,Stated [Primary Care Provider] - 1-2 days Time of Disposition: 11:18
[2022-12-14 09:47] LABS: Basophils # (A) 0.1 k/uL (0-0.2); Basophils % (A) 1 %; Eosinophils # (A) 0.4 k/uL (0-0.7); Eosinophils % (A) 3 %; HGB 17.2 gm/dL (13.0-17.5); Lymphocytes # (A) 3.9 k/uL (1.0-4.8); Lymphocytes % (A) 30 %; MCH 31.6 pg (25.0-35.0); MCHC 33.1 g/dL (31.0-37.0); MCV 95.5 fL (80.0-100.0); Mean Platelet Volume 7.3; Monocytes # (A) 0.7 k/uL (0-1.0); Monocytes % (A) 5 %; Neutrophils % (A) 61 %; Platelet Count 239 k/uL (150-450); RBC 5.44 m/uL (4.30-5.90); RDW 13.7 % (11.5-15.5); WBC 13.1 k/uL (3.8-10.6)
[2022-12-14 09:57] LABS: INR 1.1 (<1.2); Partial Thromboplastin Time 25.6 sec (22.0-30.0)
[2022-12-14 09:58] LABS: ALT 39 U/L (4-49); AST 30 U/L (17-59); African American GFR (CKD) >90 (>60 ml/min/1.73 sqM); Alkaline Phosphatase 73 U/L (38-126); Anion Gap 7 mmol/L; Blood Urea Nitrogen 23 mg/dL (9-20); Calcium 8.9 mg/dL (8.4-10.2); Carbon Dioxide 24 mmol/L (22-30); Chloride 103 mmol/L (98-107); Glucose 122 mg/dL (74-99); Non-African American GFR(CKD) 85 (>60 ml/min/1.73 sqM); Potassium 4.1 mmol/L (3.5-5.1); Sodium 134 mmol/L (137-145); Total Bilirubin 0.7 mg/dL (0.2-1.3); Total Protein 6.8 g/dL (6.3-8.2)
--- NOTE | 2022-12-14 10:02 | XR ---
EXAMINATION TYPE: XR chest 2V DATE OF EXAM: 12/14/2022 9:41 AM CLINICAL INDICATION:Male, 67 years old with history of difficulty breathing; [facility] COMPARISON: Chest radiographs from 12/10/2022 TECHNIQUE: XR chest 2V Frontal and lateral views of the chest. FINDINGS: Lungs/Pleura: There is no evidence of pleural effusion, focal consolidation, or pneumothorax. Pulmonary vascularity: Unremarkable. Heart/mediastinum: Cardiomediastinal silhouette is unremarkable. Musculoskeletal: No acute osseous pathology. Other findings: None IMPRESSION: No acute cardiopulmonary disease/process.
[2022-12-14 10:06] LABS: NT-Pro-B-Type Natriuretic Pept <20 pg/mL
[2022-12-14] MEDS ORDERED: IPRATROPIUM-ALBUTEROL 3 ML NEB INHALATION PRN (11:19)
[2022-12-14] MEDS ORDERED: NALOXONE 0.4 MG/ML 1 ML VIAL IVP PRN (11:19)
[2022-12-14] MEDS: IPRATROPIUM-ALBUTEROL 3 ML NEB INHALATION SCH ×3 (11:28→20:55)
[2022-12-14] MEDS ORDERED: AMOXIC-POT CLAV 875-125MG 1 EACH TAB PO SCH (11:30)
[2022-12-14] MEDS ORDERED: cefTRIAXone IN SWFI 1,000 MG/10 ML SYRINGE IVP STA (11:43)
[2022-12-14] MEDS: methylPREDNISolone SOD SUCCI 125 MG/2 ML VIAL IV SCH ×2 (12:19→17:24)
--- NOTE | 2022-12-14 14:22 | HP ---
HISTORY AND PHYSICAL CHIEF COMPLAINT: Shortness of breath. HISTORY OF PRESENT ILLNESS: This is a 67-year-old gentleman with a past medical history of nausea and he apparently was not feeling well. The patient got outpatient antibiotic, Levaquin for respiratory infection. The patient had some hot feeling and patient apparently had 4 visits to the ER because of shortness of breath and other symptoms. The patient is a heavy smoker. No chest pain or palpitation. The chest x-ray done in the ER, which I reviewed personally, showed possible COPD. PAST MEDICAL HISTORY: Reviewed. REVIEW OF SYSTEMS: 14-point review of systems is negative except as mentioned earlier. HOME MEDICATIONS: Reviewed, include: 1. Antivert. 2. Levaquin. ALLERGIES: Aspirin. FAMILY HISTORY: No history of heart disease or strokes in the family. SOCIAL HISTORY: The patient used to work in a factory with a lot of smoke. History of continued ongoing smoking. PHYSICAL EXAMINATION: VITAL SIGNS: Pulse is 71, blood pressure 140/70, respirations 20. HEENT: Conjunctivae normal. CARDIOVASCULAR: No murmur RESPIRATION: Breath sounds diminished at the bases. Scattered rhonchi. ABDOMEN: Soft, nontender. LEGS: No edema. NERVOUS SYSTEM: Nonfocal. SKIN: No ulcers or rashes. JOINTS: No active deforming arthropathy. LABORATORY DATA: Reviewed. ASSESSMENT: 1. Failed outpatient treatment. 2. Chronic obstructive pulmonary disease acute exacerbation with acute purulent tracheobronchitis. 3. Continued ongoing nicotine dependence. 4. Increased WBC. 5. Multiple medical issues. RECOMMENDATIONS AND DISCUSSION: This is a 67-year-old gentleman, who presented with multiple complex medical issues. We will monitor the patient closely. I would recommend intensive bronchodilator treatment, IV steroids, and empiric antibiotics. Otherwise, we will closely monitor. Prognosis guarded. Further recommendations to follow. See orders for further details. Recommended smoking cessation. MMODL / IJN: [id number] /
[2022-12-14] MEDS: HEPARIN SODIUM,PORCINE 5,000 UNIT/ML 1 ML VIAL SQ SCH ×2 (16:15→21:13)
[2022-12-14] MEDS: NICOTINE 14MG/24HR PATCH TRANSDERM SCH (16:27)
[2022-12-14] MEDS: LOSARTAN 25 MG TAB PO SCH (17:30)
[2022-12-14 17:42] LABS: Glucose,Whole Blood 177 mg/dL (70-110)
[2022-12-14] MEDS: SYMBICORT 160-4.5 MCG INHALER INHALATION SCH (20:55)
[2022-12-14] MEDS ORDERED: hydrALAZINE HCL 20 MG/ML 1 ML VIAL IVP STA (21:26)
[2022-12-15] MEDS: methylPREDNISolone SOD SUCCI 125 MG/2 ML VIAL IV SCH ×4 (01:14→17:58)
[2022-12-15] MEDS: PANTOPRAZOLE 40 MG TABLET PO SCH (06:18)
[2022-12-15] MEDS ORDERED: MECLIZINE 25 MG TAB PO PRN (07:10)
[2022-12-15 08:13] LABS: Basophils % (A) 0 %; Eosinophils # (A) 0.1 k/uL (0-0.7); Eosinophils % (A) 1 %; HGB 16.5 gm/dL (13.0-17.5); Lymphocytes # (A) 1.5 k/uL (1.0-4.8); Lymphocytes % (A) 9 %; MCH 31.3 pg (25.0-35.0); MCHC 32.4 g/dL (31.0-37.0); MCV 96.7 fL (80.0-100.0); Mean Platelet Volume 7.8; Monocytes # (A) 0.2 k/uL (0-1.0); Monocytes % (A) 1 %; Neutrophils # (A) 14.9 k/uL (1.3-7.7); Neutrophils % (A) 89 %; Platelet Count 217 k/uL (150-450); RBC 5.27 m/uL (4.30-5.90); RDW 13.7 % (11.5-15.5); WBC 16.8 k/uL (3.8-10.6)
[2022-12-15] MEDS: NICOTINE 14MG/24HR PATCH TRANSDERM SCH (08:27)
[2022-12-15] MEDS: LOSARTAN 25 MG TAB PO SCH (08:27)
[2022-12-15] MEDS: HEPARIN SODIUM,PORCINE 5,000 UNIT/ML 1 ML VIAL SQ SCH ×2 (08:27→22:23)
[2022-12-15] MEDS: MECLIZINE 25 MG TAB PO SCH (08:27)
[2022-12-15 08:30] LABS: African American GFR (CKD) >90 (>60 ml/min/1.73 sqM); Anion Gap 7 mmol/L; Blood Urea Nitrogen 20 mg/dL (9-20); Calcium 8.9 mg/dL (8.4-10.2); Carbon Dioxide 27 mmol/L (22-30); Chloride 101 mmol/L (98-107); Glucose 172 mg/dL (74-99); Non-African American GFR(CKD) >90 (>60 ml/min/1.73 sqM); Potassium 4.4 mmol/L (3.5-5.1); Sodium 135 mmol/L (137-145)
[2022-12-15] MEDS: SYMBICORT 160-4.5 MCG INHALER INHALATION SCH ×2 (09:36→19:44)
[2022-12-15] MEDS: IPRATROPIUM-ALBUTEROL 3 ML NEB INHALATION SCH ×4 (09:36→19:44)
--- NOTE | 2022-12-15 13:19 | PN ---
PROGRESS NOTE DATE OF SERVICE: 12/15/2022 SUBJECTIVE: This is a 67-year-old gentleman who was admitted with COPD acute exacerbation, has been closely monitored. No chest pain, no palpitations, no fever. OBJECTIVE: VITAL SIGNS: Pulse is 79, blood pressure 150/76, respirations 19. CHEST: Few scattered rhonchi. No crackles. ABDOMEN: Soft. NERVOUS SYSTEM: No focal deficits. LABORATORY DATA: Reviewed. ASSESSMENT: 1. Chronic obstructive pulmonary disease acute exacerbation with acute purulent tracheobronchitis with failure of outpatient treatment. 2. Continue ongoing nicotine dependence. 3. Increased WBC. 4. Multiple medical issues. RECOMMENDATIONS: Recommended to continue current management. Continue symptomatic treatment, continue empiric antibiotics, bronchodilators, IV steroids. Guarded prognosis. I would also recommend pulmonary consultation. Further recommendations to follow. MMODL / IJN: [id number] /
[2022-12-15 20:20] LABS: Glucose,Whole Blood 243 mg/dL (70-110)
[2022-12-16] MEDS: methylPREDNISolone SOD SUCCI 125 MG/2 ML VIAL IV SCH ×2 (01:43→06:11)
--- NOTE | 2022-12-16 03:23 | P.CNPUL ---
History of Present Illness Consult date: 12/16/22 Requesting physician: Renee Gregory Reason for consult: COPD Chief complaint: Shortness of breath History of present illness: I am seeing this patient in new consultation today 12/16/2022 for suspected COPD exacerbation. Patient is a 67-year-old white male with a limited past medical history, he does not routinely see a doctor. Patient recently stopped smoking. He does have over a [id number] smoking history. Patient presented to emergency room on December 14 complaining mostly of shortness of breath with a mostly nonproductive cough. Symptoms reportedly started last Wednesday. He originally had complaints of nasal congestion and cough; this has progressivly worsened, and now he is reporting shortness of breath, chest tightness, and wheezing. He was reportedly treated with a round of steroids by Dr. Maxwell's office. They also started him on Levaquin, which he did not tolerate. He developed abdominal pain and flushing after taking one dose. He did not take any further doses. He also had a brief ER visit for the same symptoms on December 11. He denies any fevers, chills, chest pain. Denies any chest pain, heart palpitations, or lower extremity swelling. Patient is currently lying in bed, on 4 L per minute nasal cannula, in no acute distress. Chest x-ray on arrival showed no acute cardiopulmonary process. No focal infiltrates or evidence of pneumonia. CBC from yesterday shows some leukocytosis with a WBC count of 16.8, hemoglobin 16.5, hematocrit 51, platelets 217. BMP from yesterday shows a sodium 135, potassium 4.4, chloride 1, serum bicarb 27, BUN 20, creatinine 0.78, glucose 172. Troponins are less than 0.012. NT proBNP not elevated. Negative for influenza, RSV, COVID-19. Patient was started empirically on Rocephin. He is afebrile. He appears nontoxic, and is hemodynamically stable. Review of Systems REVIEW OF SYSTEMS: CONSTITUTIONAL: Denies any recent significant weight loss or weight gain. EYES: Denies change in vision. EARS, NOSE, MOUTH, THROAT: Denies headaches, denies sore throat. CARDIOVASCULAR: Denies chest pain, palpitations or syncopal episodes. RESPIRATORY: See HPI GASTROINTESTINAL: Denies change in appetite, abdominal pain, nausea and vomiting, or diarrhea GENITOURINARY: Denies hematuria, denies infections. MUSKULOSKELETAL: Denies pain, denies swelling. INTEGUMENTARY: Denies rash, denies eczema. NEUROLOGICAL: Denies recent memory loss, no recent seizure activity. PSYCHIATRIC: Denies anxiety, denies depression. HEMATOLOGIC/LYMPHATIC: Denies anemia, denies enlarged lymph node Past Medical History Past Medical History: No Reported History History of Any Multi-Drug Resistant Organisms: None Reported Past Surgical History: No Surgical Hx Reported Past Psychological History: No Psychological Hx Reported Smoking Status: Current every day smoker Past Alcohol Use History: Occasional Past Drug Use History: None Reported Medications and Allergies Home Medications Medication Instructions Recorded Confirmed Type Meclizine [Antivert] 25 mg PO DAILY 12/14/22 12/14/22 History Allergies Allergy/AdvReac Type Severity Reaction Status Date / Time aspirin Allergy Swelling Verified 12/14/22 11:54 Physical Exam Vitals: Vital Signs Temp Pulse Pulse Resp BP Pulse Ox 12/16/22 01:11 98.0 F 92 19 118/56 95 12/15/22 19:59 84 12/15/22 19:44 84 12/15/22 18:56 98.7 F 86 18 146/64 93 L 12/15/22 16:44 88 12/15/22 16:35 84 12/15/22 16:24 97.7 F 88 18 170/68 92 L 12/15/22 13:35 97.8 F 101 H 19 133/75 92 L 12/15/22 13:30 86 12/15/22 13:21 87 12/15/22 09:54 80 12/15/22 09:39 93 L 12/15/22 09:36 79 12/15/22 08:10 92 L 12/15/22 07:53 98.0 F 69 19 154/76 89 L Intake and Output 12/15/22 12/15/22 12/16/22 14:59 22:59 06:59 Intake Total 50 Balance 50 Intake: Intake, IV Titration 50 Amount cefTRIAXone 1 gm In 50 Sodium Chloride 0.9% 50 ml @ 100 mls/hr IVPB Q24HR [facility] Rx#:[id number] Other: Voiding Method Toilet # Voids 1 GENERAL EXAM: Alert, 67-year-old obese white male, comfortable in no apparent distress. HEAD: Normocephalic and atraumatic EYES: Normal reaction of pupils, equal size. NOSE: Clear with pink turbinates. THROAT: No erythema or exudates. NECK: No masses, no JVD. CHEST: No chest wall deformity. LUNGS: Equal air entry with expiratory wheezes heard throughout. On 4 L/m nasal cannula. No conversational dyspnea or accessory muscle use.. CVS: S1 and S2 normal with no audible murmur, regular rhythm. No extra heart sounds ABDOMEN: Obese abdomen, no hepatosplenomegaly, active bowel sounds, no guarding or rigidity. SPINE: No scoliosis or deformity SKIN: No rashes CENTRAL NERVOUS SYSTEM: No focal deficits, tone is normal in all 4 extremities. EXTREMITIES: There is no peripheral edema, clubbing, or cyanosis. Peripheral pulses are intact. Results - Laboratory Findings CBC and BMP: 12/15/22 07:56 12/15/22 07:56 PT/INR, D-dimer PT 11.0 sec (9.0-12.0) 12/14/22 09:20 INR 1.1 (<1.2) 12/14/22 09:20 D-Dimer 0.32 mg/L FEU (<0.60) 12/14/22 09:20 Abnormal lab findings: Abnormal Labs 12/14/22 12/14/22 12/14/22 09:20 09:20 17:40 WBC 13.1 H Neutrophils # 8.0 H Sodium 134 L BUN 23 H Glucose 122 H POC Glucose (mg/dL) 177 H 12/15/22 12/15/22 12/15/22 07:56 07:56 20:17 WBC 16.8 H Neutrophils # 14.9 H Sodium 135 L BUN Glucose 172 H POC Glucose (mg/dL) 243 H - Diagnostic Findings Chest x-ray: image reviewed Assessment and Plan Assessment: Suspected acute COPD exacerbation, chest x-ray on arrival showed no focal infiltrates or evidence of pneumonia. Negative for influenza, RSV, COVID-19 Acute hypoxemic respiratory failure, secondary to above, on 4 L per minute nasal cannula Suspected upper respiratory tract infection Leukocytosis Morbid obesity, with a BMI of 40.8 kg/m Benign essential hypertension History of vertigo Chronic nicotine dependence Plan: Patient's medications, labs, chest x-ray reviewed Continue supplemental oxygen Start patient on a combination of DuoNeb, Symbicort inhaler, IV Solu-Medrol currently receiving empiric antibiotics, check procalcitonin level and manage antibiotics accordingly Heparin for DVT prophylaxis Protonix for GI prophylaxis Smoking cessation counseling performed Nicotine replacement offered We will continue to follow I have personally seen and examined the patient, performed the documentation and the assessment and plan as written. Number of minutes spent on the visit:20 Time with Patient: Greater than 30
[2022-12-16] MEDS ORDERED: FUROSEMIDE 10 MG/ML 2 ML VIAL IV ONE (03:25)
[2022-12-16 07:38] LABS: Glucose,Whole Blood 221 mg/dL (70-110)
[2022-12-16] MEDS: IPRATROPIUM-ALBUTEROL 3 ML NEB INHALATION SCH ×2 (07:42→11:36)
[2022-12-16] MEDS: SYMBICORT 160-4.5 MCG INHALER INHALATION SCH (07:42)
[2022-12-16 08:00] VITALS: BP 131/72; RESP 18; TEMP 97.8
[2022-12-16] MEDS: NICOTINE 14MG/24HR PATCH TRANSDERM SCH (08:31)
[2022-12-16] MEDS: PANTOPRAZOLE 40 MG TABLET PO SCH (08:31)
[2022-12-16] MEDS: HEPARIN SODIUM,PORCINE 5,000 UNIT/ML 1 ML VIAL SQ SCH (08:31)
[2022-12-16] MEDS: MECLIZINE 25 MG TAB PO SCH (08:32)
[2022-12-16] MEDS: LOSARTAN 25 MG TAB PO SCH (08:35)
[2022-12-16 08:55] LABS: Basophils # (A) 0.02 X 10*3/uL (0.00-0.10); Basophils % (A) 0.1 %; Eosinophils # (A) 0 X 10*3/uL (0.04-0.35); Eosinophils % (A) 0 %; HCT 46.3 % (39.6-50.0); HGB 15.6 d/dL (13.0-17.0); Lymphocytes # (A) 1.25 X 10*3/uL (0.90-5.00); Lymphocytes % (A) 6.9 %; MCH 31.9 pg (27.0-32.0); MCHC 33.7 d/dL (32.0-37.0); MCV 94.7 FL (80.0-97.0); Monocytes # (A) 0.55 X 10*3/uL (0.20-1.00); NRBC Per 100 WBC 0 X 10*3/uL (0.00-0.01); Neutrophils # (A) 16.14 X 10*3/uL (1.80-7.70); Neutrophils % (A) 88.8 %; Platelet Count 185 X 10*3/uL (140-440); RBC 4.89 X 10*6/uL (4.40-5.60); RDW 14.2 % (11.5-14.5); WBC 18.18 X 10*3/uL (4.50-10.00)
[2022-12-16] MEDS ORDERED: FLUTICASONE 50MCG/SPRAY NASAL 16GM EA NOSTRIL SCH (09:00)
[2022-12-16 09:21] LABS: Blood Urea Nitrogen 23.7 mg/dL (9.0-27.0); Calcium 8.6 mg/dL (8.7-10.3); Carbon Dioxide 23.8 mmol/L (21.6-31.8); Chloride 102 mmol/L (96-109); Glucose 231 mg/dL (70-110); Potassium 4.4 mmol/L (3.5-5.5); Sodium 139 mmol/L (135-145)
[2022-12-16 12:28] LABS: Glucose,Whole Blood 353 mg/dL (70-110)
[2022-12-16 13:17] VITALS: PULSE 90
--- NOTE | 2022-12-17 09:27 | CDI ---
Documentation Clarification Form Date: 12/17/2022 09:20:22 AM From: Rebecca Pruitt Admit Date: 12/14/2022 11:20:00 AM Patient Name: Ricardo Palmer Visit Number: [id number] Discharge Date: 12/16/2022 01:37:00 PM ATTENTION: The Clinical Documentation Specialists (CDI) and [facility] Coding Staff appreciate your assistance in clarifying documentation. Please respond to the clarification below the line at the bottom and electronically sign. The CDI & [facility] Coding staff will review the response and follow-up if needed. Please note: Queries are made part of the Legal Health Record. If you have any questions, please contact the author of this message via ITS. Dr. Renee Gregory Acute hypoxic respiratory failure is documented in Pulmonary consult on 12/16. For each diagnosis, documentation must be clear to determine if the condition was present at the time of the patients inpatient admission or developed during the hospital stay. Additional clarification regarding Acute hypoxic respiratory failure is requested. History/Risk Factors: COPD exacerbation and acute bronchitis Clinical Indicators: O2 sat on admit 91% on RA Treatment: O2 NC 4L Definition of Present on Admission (POA): A diagnosis present at the time the order for admission to inpatient status was written. Please clarify if Acute hypoxic respiratory failure was POA [ ] Y = Yes, the condition was present at the time of the order for inpatient admission. [ ] N = No, the condition was not present at the time of the order for inpatient admission. [ ] W = Clinically undetermined if the condition was present at the time of the order for inpatient admission. Yes, the condition was present at the time of the order for inpatient admission. MTDD
--- NOTE | 2022-12-17 12:59 | P.DS ---
Providers Date of admission: 12/14/22 11:20 Expected date of discharge: 12/16/22 Attending physician: Renee Gregory Consults: 12/15/22 12:48 Consult Physician Routine Consulting Provider: Nancy Moore Consult Reason/Comments: copd Do you want consulting provider notified?: Yes Primary care physician: Stated None Hospital Course: Final diagnosis shortness of breath, acute COPD exacerbation with acute purulent tracheobronchitis with failure of outpatient treatment leukocytosis, multifactorial secondary to above as well as a component of steroid-induced Acute hypoxic respiratory failure, present on admission secondary to COPD Acute bronchitis continued ongoing nicotine dependence morbid Obesity with a BMI of 40.8 Discharge disposition Patient is being discharged in a stable condition with guarded prognosis to home. Patient will follow-up with Dr. Kwaku Gregory to establish in the outpatient setting upon discharge. Patient is to continue with prednisone taper along with inhalers and close outpatient follow-up with pulmonary as scheduled. Total time taken is greater than 35 minutes. Hospital course This is a 67-year-old male who was recently admitted with shortness of breath, COPD exacerbation being closely monitored. Patient was evaluated by pulmonary maintained on IV steroids along with pre-inhalational treatments and DuoNeb's. Patient initially requiring oxygen although is on room air and reports feeling much improved and denies worsening shortness of breath. Patient will be discharged today and strongly recommend outpatient follow-up with resources provided to establish with a primary care provider along with pulmonary. Patient to continue on Symbicort although not covered requiring a prior authorization and will change to Advair and continue prednisone taper with close outpatient follow-up with pulmonary. please refer to pulmonary notes for further HPI. patient has been counseled extensively on avoiding tobacco use and exposure. Currently no reports of chest pain, shortness of breath, or palpitations. Patient is afebrile. No reports of nausea or vomiting and patient is tolerating diet. Patient will be discharged home in guarded prognosis today. Physical exam: Gen: This is a 67-year-old male who is awake, alert and oriented 3, well- developed, well-nourished, morbidly obese HEENT: Head is atraumatic, normocephalic. Pupils equal, round. Sclerae is anicteric. NECK: Supple. No JVD. No lymphadenopathy. No thyromegaly. LUNGS: breath sounds diminished bilaterally with faint expiratory wheezes and some scattered rhonchi. No intercostal retractions. HEART: Regular rate and rhythm. No murmur. ABDOMEN: Soft. obese. Bowel sounds are present. No masses. No tenderness. EXTREMITIES: No pedal edema. No calf tenderness. NEUROLOGICAL: Patient is awake, alert and oriented x3. Cranial nerves 2 through 12 are grossly intact. Please refer to medication reconciliation sheet for a list of medications. The impression and plan of care has been dictated by Soco Hatch, Nurse Practitioner as directed. Dr. Colt MD I have performed a history and examination and MDM of this patient, discussed the same with the dictator, and agree with the dictator's assessment and plan as written ,documented as a scribe. Based on total visit time, I have performed more than 50% of the visit. Patient Condition at Discharge: Fair Plan - Discharge Summary New Discharge Prescriptions: New cefUROXime axetiL [Ceftin] 500 mg PO BID 3 Days #6 tab Ipratropium-Albuterol Nebulize [Duoneb 0.5 mg-3 mg/3 ml Soln] 3 ml INHALATION RT-QID #100 each Ipratropium-Albuterol Nebulize [Duoneb 0.5 mg-3 mg/3 ml Soln] 3 ml INHALATION RT-Q2H PRN each PRN Reason: Shortness Of Breath Or Wheezing Nicotine 14Mg/24Hr Patch [Habitrol] 1 patch TRANSDERM DAILY #30 patch predniSONE 10 mg PO DIRECTED #30 tab Losartan [Cozaar] 25 mg PO DAILY #30 tab Fluticasone Nasal [place] [Flonase Nasal [place]] 2 spray EA NOSTRIL DAILY #7 ml Fluticasone Propion/Salmeterol [Advair 100-50 Diskus] 1 inhalation PO BID 30 Days #1 each Continue Meclizine [Antivert] 25 mg PO DAILY Discharge Medication List Meclizine [Antivert] 25 mg PO DAILY 12/14/22 [History] Fluticasone Nasal [place] [Flonase Nasal [place]] 2 spray EA NOSTRIL DAILY #7 ml 12/16/22 [Rx] Ipratropium-Albuterol Nebulize [Duoneb 0.5 mg-3 mg/3 ml Soln] 3 ml INHALATION RT-Q2H PRN each 12/16/22 [Rx] Ipratropium-Albuterol Nebulize [Duoneb 0.5 mg-3 mg/3 ml Soln] 3 ml INHALATION RT-QID #100 each 12/16/22 [Rx] Losartan [Cozaar] 25 mg PO DAILY #30 tab 12/16/22 [Rx] Nicotine 14Mg/24Hr Patch [Habitrol] 1 patch TRANSDERM DAILY #30 patch 12/16/22 [Rx] cefUROXime axetiL [Ceftin] 500 mg PO BID 3 Days #6 tab 12/16/22 [Rx] predniSONE 10 mg PO DIRECTED #30 tab 12/16/22 [Rx] Fluticasone Propion/Salmeterol [Advair 100-50 Diskus] 1 inhalation PO BID 30 Days #1 each 12/17/22 [Rx] Follow up Appointment(s)/Referral(s): Nancy Moore MD [STAFF PHYSICIAN] - 12/31/22 8:30 am Shabana Bhatia MD [STAFF PHYSICIAN] - 1 Week (Please call and make follow up appointment the office is on lunch.) Patient Instructions/Handouts: How to Stop Smoking (DC), COPD (Chronic Obstructive Pulmonary Disease) (DC) Activity/Diet/Wound Care/Special Instructions: Activity Limited until follow-up Follow-up with primary care provider on discharge Follow-up with pulmonary outpatient in 1-2 weeks Continue taking medications as prescribed Neutral avoid tobacco use and exposure Discharge Disposition: HOME SELF-CARE
== END 2022-12-16 13:37 | disposition home or self-care (01) | DRG 189 ==
LOC: EC 08:51 → 4SSUR 11:20 → 1SOBS 15:55 → 5NMEDONC 12-15 16:02
PROVIDERS: ADMIT Hospitalist; ATTEND Hospitalist
DX: J96.01 Acute respiratory failure with hypoxia (principal); J44.1 Chronic obstructive pulmonary disease with (acute) exacerbation; Z68.41 Body mass index [BMI] 40.0-44.9, adult; J44.0 Chronic obstructive pulmonary disease with (acute) lower respiratory infection; J20.9 Acute bronchitis, unspecified; F17.210 Nicotine dependence, cigarettes, uncomplicated; E66.01 Morbid (severe) obesity due to excess calories; Z20.822 Contact with and (suspected) exposure to COVID-19; R42 Dizziness and giddiness; Z71.6 Tobacco abuse counseling; Z79.2 Long term (current) use of antibiotics; Z79.899 Other long term (current) drug therapy; Z88.6 Allergy status to analgesic agent
CPT/HCPCS: 36415; 71046; 80048; 80053; 83605; 83735; 83880; 84145; 84484; 85025; 85379; 85610; 85730; 87636; 93005; 94640; 94760; 96372; 96374; 96375; 96376; 99285

== ENCOUNTER → 2023-02-19 | Outpatient (CLI) | payer MEDICARE ==
--- NOTE | 2023-02-23 09:36 | CTL ---
EXAMINATION TYPE: CT Low Dose Lung DATE OF EXAM: 02/19/2023 9:51 AM CLINICAL INDICATION:Male, 67 years old with history of Z12.2,F17.210; Personal hx tobacco use, 1 pk/d ay x20 years. Pt states he had bronchitis that led to COPD and quit 3 months ago. , history of tobacc o use. COMPARISON: None. TECHNIQUE: Multiple axial non-contrast scans were obtained from approximately the lung apices through the upper abdomen. Coronal and sagittal reformatted images were obtained. Low dose technique was uti lized. CT DLP: 86.3 mGycm, Automated exposure control for dose reduction was used. CT Contrast: Contrast used: None Oral contrast used: None FINDINGS: ======== Lack of intravenous contrast and low dose technique limits the evaluation of the vascular and soft ti ssue structures. LUNGS: No evidence of pulmonary fibrosis. No evidence of focal consolidation, pneumothorax or pleural effusion. Mild emphysema changes seen throughout the lungs. Nodules: RUL: None. RML: None. RLL: None. JAYLENE: None. LLL: None. AIRWAY: Patent and unremarkable. HEART: Size within normal limits. MEDIASTINUM: No gross evidence of adenopathy. VASCULATURE: No aortic aneurysm. MUSCULOSKELETAL: No acute osseous abnormalities SOFT TISSUES/LYMPH NODES: Unremarkable. LOWER NECK: No significant findings. UPPER ABDOMEN: Diffuse low-attenuation to the liver parenchyma. IMPRESSION: 1. No pulmonary nodules. 2. Mild emphysema. 3. Hepatic steatosis. CT LUNG RAD AND CT CHEST RECOMMENDATION: Lung-Rad 1 Negative: Continue annual screening with LDCT in 12 months. S Modifier (other clinically significant findings): None Recommend smoking cessation (if current smoker), or continuation of smoking cessation (if prior smoke r). Annual screening for lung cancer with low-dose computed tomography is recommended in adults ages 55 to 77 years who have a 30 pack-year smoking history and currently smoke or have quit within the pa st 15 years. Screening should be discontinued once a person has not smoked for 15 years or develops a health problem that substantially limits life expectancy or the ability or willingness to have curat derrick lung surgery. Lung rads 2021 [email or web address]
== END | disposition home or self-care (01) ==
LOC: RADCTMAIN 09:15
PROVIDERS: ATTEND Internal Medicine
DX: Z12.2 Encounter for screening for malignant neoplasm of respiratory organs (principal); J43.9 Emphysema, unspecified; K76.0 Fatty (change of) liver, not elsewhere classified; J40 Bronchitis, not specified as acute or chronic; J44.9 Chronic obstructive pulmonary disease, unspecified; Z87.891 Personal history of nicotine dependence
CPT/HCPCS: 71271

== ENCOUNTER → 2023-07-13 | Outpatient (CLI) | payer MEDICARE ==
--- NOTE | 2023-07-13 23:36 | US ---
EXAMINATION TYPE: US Aorta Screening DATE OF EXAM: 07/13/2023 COMPARISON: NONE CLINICAL INDICATION: Male, 67 years old with history of Z12.2 SCREENING MALIGNANT NEOPLASM OF RESPITO RY ORGANS; Patient hx of smoking. TECHNIQUE: Multiple sonographic images of the abdominal aorta are obtained. FINDINGS: EXAM MEASUREMENTS: Abdominal Aorta: Proximal: Obscured by gas Mid: 2.7cm Distal: 1.9 x 2.1cm Bifurcation: Right Iliac: Obscured by gas Left Iliac: Obscured by gas SOIL CHEMIST NOTES: Very limited due to overlying gas and patient body habitus. Unable to definitive ly rule out AAA with ultrasound today, however visualized portions appear normal. IMPRESSION: 1. No obvious abdominal aortic aneurysm by ultrasound screening. 2. Screening is limited given excessive bowel gas present at the time of the exam.
--- NOTE | 2023-07-14 22:30 | CT ---
EXAMINATION TYPE: CT abdomen pelvis wo con DATE OF EXAM: 07/13/2023 COMPARISON: None INDICATION: BLOOD IN URINE DLP: 828.3 mGycm, Automated exposure control for dose reduction was used. CONTRAST: 0 mL of Isovue 300. Study performed without Oral Contrast TECHNIQUE: Axial images were obtained from above the diaphragm to the pubic rami in the axial plane a t 5 mm thick sections. Reconstructed images are reviewed on the computer in the coronal plane. FINDINGS: Limited CT sections are obtained the lung bases. The lung bases are clear. CT ABDOMEN: Liver: There is moderate fatty infiltration throughout the liver. No discrete masses are evident. Spleen: Normal Pancreas: Normal Adrenal glands: The adrenal glands are normal. Gallbladder: Normal Kidneys: No masses are evident. No hydronephrosis is present. No cysts are present. Right kidney m ay be inferiorly displaced with some malrotation. Aorta: Vascular calcification is within the aorta. Inferior vena cava: Normal. CT PELVIS: Loops of bowel within the abdomen and pelvis are normal. There are a few scattered diverticuli prese nt greater in the sigmoid colon. No acute diverticulitis. The study as the oral contrast limiting b owel evaluation. Appendix: Normal as visualized. Urinary bladder: Normal. Genitourinary structures: Prostate is normal. Osseous structures: No suspicious lytic or sclerotic lesions. IMPRESSION: 1. Moderate fatty infiltration of the liver. 2. Diverticulosis without acute diverticulitis.
== END | disposition home or self-care (01) ==
LOC: RADCTMAIN 08:44
PROVIDERS: ATTEND Family Medicine
DX: Z12.2 Encounter for screening for malignant neoplasm of respiratory organs (principal); R14.3 Flatulence; K76.0 Fatty (change of) liver, not elsewhere classified; K57.90 Diverticulosis of intestine, part unspecified, without perforation or abscess without bleeding; Z87.448 Personal history of other diseases of urinary system; Z87.891 Personal history of nicotine dependence
CPT/HCPCS: 74176; 76706

== ENCOUNTER → 2024-02-03 | Outpatient (CLI) | payer MEDICARE ==
[2024-02-03 10:20] LABS: Basophils # (A) 0.07 X 10*3/uL (0.00-0.10); Basophils % (A) 0.8 %; Eosinophils # (A) 0.15 X 10*3/uL (0.04-0.35); Eosinophils % (A) 1.7 %; HCT 46.2 % (39.6-50.0); HGB 15.5 g/dL (13.0-17.0); Lymphocytes # (A) 2.95 X 10*3/uL (0.90-5.00); Lymphocytes % (A) 34.3 %; MCH 30.5 pg (27.0-32.0); MCHC 33.5 g/dL (32.0-37.0); MCV 90.9 FL (80.0-97.0); Mean Platelet Volume 9.4 FL (9.5-12.2); Monocytes # (A) 0.58 X 10*3/uL (0.20-1.00); Monocytes % (A) 6.8 %; NRBC Per 100 WBC 0 X 10*3/uL (0.00-0.01); Neutrophils # (A) 4.81 X 10*3/uL (1.80-7.70); Neutrophils % (A) 56.1 %; Platelet Count 181 X 10*3/uL (140-440); RBC 5.08 X 10*6/uL (4.40-5.60); RDW 13.3 % (11.5-14.5); WBC 8.59 X 10*3/uL (4.50-10.00)
[2024-02-03 10:34] LABS: BUN/Creat Ratio 16.45 Ratio (12.00-20.00); Blood Urea Nitrogen 18.1 mg/dL (9.0-27.0); Carbon Dioxide 22.9 mmol/L (21.6-31.8); Chloride 101 mmol/L (96-109); Chol/HDL Ratio 3.98 Ratio; Glucose 181 mg/dL (70-110); Potassium 4.9 mmol/L (3.5-5.5); Sodium 136 mmol/L (135-145)
[2024-02-03 10:35] LABS: ALT 44 U/L (10-49); AST 34 U/L (14-35); Albumin 4.5 g/dL (3.8-4.9); Albumin/Globulin Ratio 1.96 Ratio (1.60-3.17); Alkaline Phosphatase 65 U/L (41-126); Calcium 9.4 mg/dL (8.7-10.3); Globulin 2.3 g/dL (1.6-3.3); PSA Annual Screen 0.251 ng/mL (0.000-4.000); Total Bilirubin 0.4 mg/dL (0.3-1.2); Total Protein 6.8 g/dL (6.2-8.2)
== END | disposition home or self-care (01) ==
LOC: LABWHC1 07:28
PROVIDERS: ATTEND Internal Medicine
DX: E11.9 Type 2 diabetes mellitus without complications (principal); E78.5 Hyperlipidemia, unspecified; Z12.5 Encounter for screening for malignant neoplasm of prostate; Z11.59 Encounter for screening for other viral diseases
CPT/HCPCS: 86803; 80061; 80053; 84443; 85025; 82043; 82570; 83036; 36415; G0103

== ENCOUNTER 2024-03-22 07:43 | Emergency (ER) | payer MEDICARE ==
[2024-03-22 07:47] VITALS: TEMP 98.1
--- NOTE | 2024-03-22 08:28 | ED ---
General Adult HPI - General Chief complaint: Recheck/Abnormal Lab/Rx Stated complaint: Hypertension Time Seen by Provider: 03/22/24 07:45 Source: patient, RN notes reviewed, old records reviewed Mode of arrival: ambulatory Limitations: no limitations - History of Present Illness Initial comments: This is a 68-year-old male who presents to the emergency department stating that a few days ago he woke up and was very hot and he took his blood pressure was elevated. Patient states it lasted a little bit and went away and then he was fine. Patient denies chest pain developing shortness of breath but patient states that he cannot occurred this morning so he took his blood pressure was 191 systolic so he decided come to the emergency department to be evaluated. Patient states he just had a recent blood pressure medication changed and he thinks he might need to have it increased again. Patient denies any chest pain or difficulty breathing. Patient denies any fever chills or cough or patient has back pain. Patient states currently he does not feel bad at all and just wants blood pressure check. - Related Data Home Medications Medication Instructions Recorded Confirmed Meclizine [Antivert] 25 mg PO DAILY 12/14/22 12/14/22 Previous Rx's Medication Instructions Recorded Fluticasone Nasal [place] [Flonase 2 spray EA NOSTRIL DAILY #7 ml 12/16/22 Nasal [place]] Ipratropium-Albuterol Nebulize 3 ml INHALATION RT-Q2H PRN each 12/16/22 [Duoneb 0.5 mg-3 mg/3 ml Soln] Ipratropium-Albuterol Nebulize 3 ml INHALATION RT-QID #100 each 12/16/22 [Duoneb 0.5 mg-3 mg/3 ml Soln] Losartan [Cozaar] 25 mg PO DAILY #30 tab 12/16/22 Nicotine 14Mg/24Hr Patch [Habitrol] 1 patch TRANSDERM DAILY #30 patch 12/16/22 cefuroxime axetiL [Ceftin] 500 mg PO BID 3 Days #6 tab 12/16/22 predniSONE 10 mg PO DIRECTED #30 tab 12/16/22 Fluticasone Propion/Salmeterol 1 inhalation PO BID 30 Days #1 each 12/17/22 [Advair 100-50 Diskus] Allergies Allergy/AdvReac Type Severity Reaction Status Date / Time aspirin Allergy Swelling Verified 12/14/22 11:54 metformin Allergy Rash/Hives Verified 03/22/24 07:47 Review of Systems ROS Statement: Those systems with pertinent positive or pertinent negative responses have been documented in the HPI. ROS Other: All systems not noted in ROS Statement are negative. Past Medical History Past Medical History: Diabetes Mellitus, Hypertension History of Any Multi-Drug Resistant Organisms: None Reported Past Surgical History: No Surgical Hx Reported Past Psychological History: No Psychological Hx Reported Smoking Status: Current every day smoker Past Alcohol Use History: Occasional Past Drug Use History: None Reported General Exam - General Exam Comments Initial Comments: GENERAL: Patient is well-developed and well-nourished. Patient is nontoxic and well-hydrated and is in no acute distress. ENT: Neck is soft and supple. No significant lymphadenopathy is noted. Oropharynx is clear. Moist mucous membranes. Neck has full range of motion without eliciting any pain. EYES: The sclera were anicteric and conjunctiva were pink and moist. Extraocular move ments were intact and pupils were equal round and reactive to light. Eyelids were unremarkable. PULMONARY: Unlabored respirations. Good breath sounds bilaterally. No audible rales rhonchi or wheezing was noted. CARDIOVASCULAR: There is a regular rate and rhythm without any murmurs gallops or rubs. ABDOMEN: Soft and nontender with normal bowel sounds. SKIN: Skin is clear with no lesions or rashes and otherwise unremarkable. NEUROLOGIC: Patient is alert and oriented x3. Cranial nerves II through XII are grossly intact. Motor and sensory are also intact. Normal speech, volume and content. Symmetrical smile. MUSCULOSKELETAL: Normal extremities with adequate strength and full range of motion. No lower extremity swelling or edema. No calf tenderness. LYMPHATICS: No significant lymphadenopathy is noted PSYCHIATRIC: Normal psychiatric evaluation. Limitations: no limitations Course Vital Signs 03/22/24 03/22/24 03/22/24 07:45 08:02 08:47 Temperature 98.1 F Pulse Rate 89 82 Pulse Rate [ 88 Interactive Media Director ] Respiratory 20 18 Rate Blood Pressure 202/88 173/91 O2 Sat by Pulse 99 96 Oximetry 03/22/24 03/22/24 09:08 09:42 Temperature Pulse Rate 107 H 106 H Pulse Rate [ Interactive Media Director ] Respiratory 18 18 Rate Blood Pressure 160/75 189/94 O2 Sat by Pulse 99 97 Oximetry Medical Decision Making - Medical Decision Making EKG is interpreted by myself EKG shows sinus rhythm at 74 bpm DE was 159 QRS is 83 QT interval is 378 QTc is 406. Patient's EKG shows no ST segment elevation Was pt. sent in by a medical professional or institution ([facility], [facility], urgent care, hospital, or jail...) When possible be specific @ -No Did you speak to anyone other than the patient for history (EMS, parent, family, police, friend...)? What history was obtained from this source @ -No Did you review nursing and triage notes (agree or disagree)? Why? @ -I reviewed and agree with nursing and triage notes Were old charts reviewed (outside hosp., previous admission, EMS record, old EKG, old radiological studies, urgent care reports/EKG's, jail records)? Report findings @ -No old charts were reviewed Differential Diagnosis? @ -Hypertension, hypertensive urgency, hypertensive emergency, A-fib, this is not an all-inclusive list EKG interpreted by me (3pts min.). @ -As above X-rays interpreted by me (1pt min.). @ -Chest x-ray shows no acute normality CT interpreted by me (1pt min.). @ -None done U/S interpreted by me (1pt. min.). @ -None done What testing was considered but not performed or refused? (CT, X-rays, U/S, labs)? Why? @ -None What meds were considered but not given or refused? Why? @ -None Did you discuss the management of the patient with other professionals (professionals i.e. [facility], [facility], lab, RT, psych nurse, social worker assistant, book store associate, teacher, antisubmarine weapons officer, case investigator)? Give summary @ -No Was smoking cessation discussed for >3mins.? @ -No Was critical care preformed (if so, how long)? @ -No Were there social determinants of health that impacted care today? How? (Homelessness, low income, unemployed, alcoholism, drug addiction, wong sportation, low edu. Level, literacy, decrease access to med. care, group home, rehab)? @ -No Was there de-escalation of care discussed even if they declined (Discuss DNR or withdrawal of care, Hospice)? DNR status @ -No What co-morbidities impacted this encounter? (DM, HTN, Smoking, COPD, CAD, Cancer, CVA, ARF, Chemo, Hep., AIDS, mental health diagnosis, sleep apnea, morbid obesity)? @ -None Was patient admitted / discharged? Hospital course, mention meds given and route, prescriptions, significant lab abnormalities, going to OR and other pertinent info. @ -Patient received 20 mg of hydralazine IV and it did bring his blood pressure down to 171 systolic. Patient was feeling better though he did at 1 point experience a little bit of a hot flash he stated while he was here. Patient also was given another dose of his lisinopril. Patient was told that he needs to start taking double the dose of lisinopril and take his blood pressure before every meal and before bed and documented in chart like format so that his physician can follow-up and determine what needs to be done if anything to fur ther decrease his blood pressure patient at no time had any chest pain palpitations or shortness of breath or difficulty breathing. Undiagnosed new problem with uncertain prognosis? @ -No Drug Therapy requiring intensive monitoring for toxicity (Heparin, Nitro, Insulin, Cardizem)? @ -No Were any procedures done? @ -No Diagnosis/symptom? @ -Hypertensive urgency Acute, or Chronic, or Acute on Chronic? @ -Acute Uncomplicated (without systemic symptoms) or Complicated (systemic symptoms)? @ -Complicated Side effects of treatment? @ -No Exacerbation, Progression, or Severe Exacerbation? @ -No Poses a threat to life or bodily function? How? (Chest pain, USA, CT, pneumonia, PE, COPD, DKA, ARF, appy, cholecystitis, CVA, Diverticulitis, Homicidal, Suicidal, threat to staff... and all critical care pts) @ -No - Lab Data Result diagrams: 03/22/24 08:24 03/22/24 08:24 Lab Results 03/22/24 03/22/24 03/22/24 Range/Units 08:24 08:24 08:24 WBC 9.1 (3.8-10.6) k/uL RBC 4.88 (4.30-5.90) m/uL Hgb 14.8 (13.0-17.5) gm/dL Hct 45.3 (39.0-53.0) % MCV 92.8 (80.0-100.0) fL MCH 30.3 (25.0-35.0) pg MCHC 32.7 (31.0-37.0) g/dL RDW 13.1 (11.5-15.5) % Plt Count 181 (150-450) k/uL MPV 7.3 Neutrophils % 65 % Lymphocytes % 27 % Monocytes % 4 % Eosinophils % 2 % Basophils % 1 % Neutrophils # 6.0 (1.3-7.7) k/uL Lymphocytes # 2.4 (1.0-4.8) k/uL Monocytes # 0.3 (0-1.0) k/uL Eosinophils # 0.2 (0-0.7) k/uL Basophils # 0.1 (0-0.2) k/uL PT 10.6 (10.0-12.5) sec INR 0.9 (<1.2) APTT 24.3 (22.0-30.0) sec Sodium 132 L (137-145) mmol/L Potassium 4.7 (3.5-5.1) mmol/L Chloride 103 (98-107) mmol/L Carbon Dioxide 19 L (22-30) mmol/L Anion Gap 10 mmol/L BUN 23 H (9-20) mg/dL Creatinine 0.96 (0.66-1.25) mg/dL Est GFR (CKD-EPI)AfAm >90 (>60 ml/min/1.73 sqM) Est GFR (CKD-EPI)NonAf 82 (>60 ml/min/1.73 sqM) Glucose 173 H (74-99) mg/dL Calcium 9.4 (8.4-10.2) mg/dL Magnesium 1.9 (1.6-2.3) mg/dL Total Bilirubin 0.2 (0.2-1.3) mg/dL AST 27 (17-59) U/L ALT 34 (4-49) U/L Alkaline Phosphatase 58 (38-126) U/L Troponin I (0.000-0.034) ng/mL Total Protein 6.9 (6.3-8.2) g/dL Albumin 4.5 (3.5-5.0) g/dL 03/22/24 Range/Units 08:24 WBC (3.8-10.6) k/uL RBC (4.30-5.90) m/uL Hgb (13.0-17.5) gm/dL Hct (39.0-53.0) % MCV (80.0-100.0) fL MCH (25.0-35.0) pg MCHC (31.0-37.0) g/dL RDW (11.5-15.5) % Plt Count (150-450) k/uL MPV Neutrophils % % Lymphocytes % % Monocytes % % Eosinophils % % Basophils % % Neutrophils # (1.3-7.7) k/uL Lymphocytes # (1.0-4.8) k/uL Monocytes # (0-1.0) k/uL Eosinophils # (0-0.7) k/uL Basophils # (0-0.2) k/uL PT (10.0-12.5) sec INR (<1.2) APTT (22.0-30.0) sec Sodium (137-145) mmol/L Potassium (3.5-5.1) mmol/L Chloride (98-107) mmol/L Carbon Dioxide (22-30) mmol/L Anion Gap mmol/L BUN (9-20) mg/dL Creatinine (0.66-1.25) mg/dL Est GFR (CKD-EPI)AfAm (>60 ml/min/1.73 sqM) Est GFR (CKD-EPI)NonAf (>60 ml/min/1.73 sqM) Glucose (74-99) mg/dL Calcium (8.4-10.2) mg/dL Magnesium (1.6-2.3) mg/dL Total Bilirubin (0.2-1.3) mg/dL AST (17-59) U/L ALT (4-49) U/L Alkaline Phosphatase (38-126) U/L Troponin I <0.012 (0.000-0.034) ng/mL Total Protein (6.3-8.2) g/dL Albumin (3.5-5.0) g/dL Disposition Clinical Impression: Hypertensive urgency Disposition: HOME SELF-CARE Condition: Good Instructions (If sedation given, give patient instructions): Preeclampsia During (ED), Hypertension (ED) Additional Instructions: Patient should document his blood pressure in a chart format before every meal and before bed. Patient should increase his lisinopril to 20 mg daily. Patient should follow-up with his primary medical care doctor. Patient should return to the emergency department if there are any new symptoms or any chest pain difficulty breathing shortness of breath. Is patient prescribed a controlled substance at d/c from ED?: No Referrals: Ishaan Varela DO [Primary Care Provider] - 1-2 days Time of Disposition: 10:20
[2024-03-22 08:36] LABS: Basophils # (A) 0.1 k/uL (0-0.2); Basophils % (A) 1 %; Eosinophils # (A) 0.2 k/uL (0-0.7); Eosinophils % (A) 2 %; HCT 45.3 % (39.0-53.0); HGB 14.8 gm/dL (13.0-17.5); Lymphocytes # (A) 2.4 k/uL (1.0-4.8); Lymphocytes % (A) 27 %; MCH 30.3 pg (25.0-35.0); MCHC 32.7 g/dL (31.0-37.0); MCV 92.8 fL (80.0-100.0); Mean Platelet Volume 7.3; Monocytes # (A) 0.3 k/uL (0-1.0); Monocytes % (A) 4 %; Neutrophils % (A) 65 %; Platelet Count 181 k/uL (150-450); RBC 4.88 m/uL (4.30-5.90); RDW 13.1 % (11.5-15.5); WBC 9.1 k/uL (3.8-10.6)
--- NOTE | 2024-03-22 08:40 | XR ---
Chest, 2 view. HISTORY: Chest pain COMPARISON: 12/14/2022 TECHNIQUE: PA and lateral views the chest are obtained. FINDINGS: The lungs are clear and there is no consolidative or interstitial opacity. There is no pleural effusion or pneumothorax. The heart, pulmonary vasculature, mediastinum and herb appear normal. The osseous structures are intact. IMPRESSION: No significant abnormality seen. No acute cardiopulmonary disease. [facility], Workstation: ERICK 03/22/2024 8:37 AM
[2024-03-22 08:48] LABS: INR 0.9 (<1.2); Partial Thromboplastin Time 24.3 sec (22.0-30.0); Prothrombin Time 10.6 sec (10.0-12.5)
[2024-03-22 08:51] LABS: ALT 34 U/L (4-49); AST 27 U/L (17-59); African American GFR (CKD) >90 (>60 ml/min/1.73 sqM); Albumin 4.5 g/dL (3.5-5.0); Alkaline Phosphatase 58 U/L (38-126); Anion Gap 10 mmol/L; Blood Urea Nitrogen 23 mg/dL (9-20); Calcium 9.4 mg/dL (8.4-10.2); Carbon Dioxide 19 mmol/L (22-30); Chloride 103 mmol/L (98-107); Glucose 173 mg/dL (74-99); Magnesium 1.9 mg/dL (1.6-2.3); Non-African American GFR(CKD) 82 (>60 ml/min/1.73 sqM); Potassium 4.7 mmol/L (3.5-5.1); Sodium 132 mmol/L (137-145); Total Bilirubin 0.2 mg/dL (0.2-1.3); Total Protein 6.9 g/dL (6.3-8.2)
[2024-03-22] MEDS: hydrALAZINE HCL 20 MG/ML 1 ML VIAL IVP STA (08:53)
[2024-03-22 09:01] VITALS: RESP 18
[2024-03-22] MEDS: lisinopriL 10 MG TAB PO STA (09:53)
[2024-03-22 10:32] VITALS: BP 171/89; PULSE 100
== END 2024-03-22 10:32 | disposition home or self-care (01) ==
LOC: EC 07:43
DX: I16.0 Hypertensive urgency (principal); F17.200 Nicotine dependence, unspecified, uncomplicated; Z88.6 Allergy status to analgesic agent; Z88.8 Allergy status to other drugs, medicaments and biological substances
CPT/HCPCS: 36415; 93005; 80053; 83735; 84484; 85025; 85610; 85730; 71046; 99284; 96374; J0360

== ENCOUNTER 2024-03-27 03:30 | Emergency (ER) | payer MEDICARE ==
[2024-03-27 03:49] VITALS: RESP 18; TEMP 97.8
--- NOTE | 2024-03-27 04:24 | ED ---
General Adult HPI - General Chief complaint: Dizziness Stated complaint: Dizzy, Vertigo Time Seen by Provider: 03/27/24 03:43 Source: patient, RN notes reviewed, old records reviewed Mode of arrival: ambulatory - History of Present Illness Initial comments: 68-year-old male presenting for evaluation of dizziness. Patient has history of vertigo. He states that around 10 PM he developed a brief episode of dizziness which was positional in nature. He states that this did improve and he was able to fall asleep. He slept for several hours and when he woke up at 3:00 he felt as though his blood pressure was elevated. He has been dealing with elevated blood pressure for some time and has had recent medication adjustments. He he denied persistent dizziness at that time. No headache. No focal numbness or weakness. No chest pain. - Related Data Home Medications Medication Instructions Recorded Confirmed Meclizine [Antivert] 25 mg PO DAILY 12/14/22 12/14/22 Previous Rx's Medication Instructions Recorded Fluticasone Nasal [place] [Flonase 2 spray EA NOSTRIL DAILY #7 ml 12/16/22 Nasal [place]] Ipratropium-Albuterol Nebulize 3 ml INHALATION RT-Q2H PRN each 12/16/22 [Duoneb 0.5 mg-3 mg/3 ml Soln] Ipratropium-Albuterol Nebulize 3 ml INHALATION RT-QID #100 each 12/16/22 [Duoneb 0.5 mg-3 mg/3 ml Soln] Losartan [Cozaar] 25 mg PO DAILY #30 tab 12/16/22 Nicotine 14Mg/24Hr Patch [Habitrol] 1 patch TRANSDERM DAILY #30 patch 12/16/22 cefuroxime axetiL [Ceftin] 500 mg PO BID 3 Days #6 tab 12/16/22 predniSONE 10 mg PO DIRECTED #30 tab 12/16/22 Fluticasone Propion/Salmeterol 1 inhalation PO BID 30 Days #1 each 12/17/22 [Advair 100-50 Diskus] Allergies Allergy/AdvReac Type Severity Reaction Status Date / Time aspirin Allergy Swelling Verified 03/27/24 03:49 metformin Allergy Rash/Hives Verified 03/27/24 03:49 Review of Systems ROS Statement: Those systems with pertinent positive or pertinent negative responses have been documented in the HPI. ROS Other: All systems not noted in ROS Statement are negative. Past Medical History Past Medical History: Diabetes Mellitus, Hypertension History of Any Multi-Drug Resistant Organisms: None Reported Past Surgical History: No Surgical Hx Reported Past Psychological History: No Psychological Hx Reported Smoking Status: Current every day smoker Past Alcohol Use History: Occasional Past Drug Use History: None Reported General Exam General appearance: alert, in no apparent distress Head exam: Present: atraumatic, normocephalic Eye exam: Present: normal appearance, PERRL Neck exam: Present: normal inspection. Absent: tenderness Respiratory exam: Present: normal lung sounds bilaterally. Absent: respiratory distress, wheezes Cardiovascular Exam: Present: regular rate, normal rhythm GI/Abdominal exam: Present: soft. Absent: distended, tenderness, guarding Extremities exam: Present: normal inspection, normal capillary refill Neurological exam: Present: alert, oriented X3, CN II-XII intact, normal gait, other (Nystagmus, no limb ataxia). Absent: motor sensory deficit Psychiatric exam: Present: normal affect, normal mood Skin exam: Present: warm, dry, intact Course Vital Signs 03/27/24 03:46 Temperature 97.8 F Pulse Rate 85 Respiratory 18 Rate Blood Pressure 157/78 O2 Sat by Pulse 95 Oximetry Medical Decision Making - Medical Decision Making Was pt. sent in by a medical professional or institution (AMANDA Colon, [employer], urgent care, hospital, or custodial...) When possible be specific @ -No Did you speak to anyone other than the patient for history (EMS, parent, family, police, friend...)? What history was obtained from this source @ -No Did you review nursing and triage notes (agree or disagree)? Why? @ -I reviewed and agree with nursing and triage notes Were old charts reviewed (outside hosp., previous admission, EMS record, old EKG, old radiological studies, urgent care reports/EKG's, custodial records)? Report findings @ -No old charts were reviewed Differential Dizziness: Benign paroxysmal positional Vertigo, Meniere's disease, otitis media, acoustic neuroma, vertebrobasilar insufficiency, cerebellar stroke, encephalitis, hypovolemic, arrhythmia, coronary artery syndrome, anemia, this is not meant to be an all-inclusive list EKG interpreted by me (3pts min.). @ -[Sinus rhythm rate of 80, LA interval 153, QRS duration 88, QTc [address] segment elevation. X-rays interpreted by me (1pt min.). @ -None done CT interpreted by me (1pt min.). @CT brain negative for intracranial hemorrhage or mass effect U/S interpreted by me (1pt. min.). @ -None done What testing was considered but not performed or refused? (CT, X-rays, U/S, labs)? Why? @ -None What meds were considered but not given or refused? Why? @ -None Did you discuss the management of the patient with other professionals (professionals i.e. , PA, [employer] WEIGHTER, lab, RT, psych nurse, elementary school social worker, bulker, teacher, corporate ethics officer, director of casework department)? Give summary @ -No Was smoking cessation discussed for >3mins.? @ -No Was critical care preformed (if so, how long)? @ -No Were there social determinants of health that impacted care today? How? (Homelessness, low income, unemployed, alcoholism, drug addiction, tra nsportation, low edu. Level, literacy, decrease access to med. care, usp, rehab)? @ -No Was there de-escalation of care discussed even if they declined (Discuss DNR or withdrawal of care, Hospice)? DNR status @ -No What co-morbidities impacted this encounter? (DM, HTN, Smoking, COPD, CAD, Cancer, CVA, ARF, Chemo, Hep., AIDS, mental health diagnosis, sleep apnea, morbid obesity)? @Hypertension, vertigo Was patient admitted / discharged? Hospital course, mention meds given and route, prescriptions, significant lab abnormalities, going to OR and other pertinent info. @ -[68-year-old male with a history of vertigo presents with an episode of dizziness, room spinning sensation. This was resolved prior to arrival. Patient is in sinus rhythm. Mildly hypertensive with otherwise stable vitals. He is not ataxic, he has a normal gait. Normal CBC, CMP shows hyperglycemia without any acute abnormality otherwise. Negative troponin. Head CT performed which is negative for intracranial hemorrhage or mass effect, patient reevaluated, again symptoms resolved. Patient stable for discharge at this time with return parameters. Undiagnosed new problem with uncertain prognosis? @ -No Drug Therapy requiring intensive monitoring for toxicity (Heparin, Nitro, Insulin, Cardizem)? @ -No Were any procedures done? @ -No Diagnosis/symptom? @Dizziness Acute, or Chronic, or Acute on Chronic? @ -Acute Uncomplicated (without systemic symptoms) or Complicated (systemic symptoms)? @ -Default Side effects of treatment? @ -No Exacerbation, Progression, or Severe Exacerbation? @ -No Poses a threat to life or bodily function? How? (Chest pain, [place], [place], pneumonia, PE, COPD, DKA, ARF, appy, cholecystitis, CVA, Diverticulitis, Homicidal, Suicidal, threat to staff... and all critical care pts) @ -Low risk at this time - Lab Data Result diagrams: 03/27/24 04:09 03/27/24 04:09 Lab Results 03/27/24 03/27/24 03/27/24 Range/Units 04:09 04:09 04:09 WBC 10.0 (3.8-10.6) k/uL RBC 5.20 (4.30-5.90) m/uL Hgb 15.8 (13.0-17.5) gm/dL Hct 48.4 (39.0-53.0) % MCV 93.1 (80.0-100.0) fL MCH 30.3 (25.0-35.0) pg MCHC 32.5 (31.0-37.0) g/dL RDW 13.5 (11.5-15.5) % Plt Count 189 (150-450) k/uL MPV 8.0 Neutrophils % 60 % Lymphocytes % 32 % Monocytes % 4 % Eosinophils % 2 % Basophils % 1 % Neutrophils # 6.0 (1.3-7.7) k/uL Lymphocytes # 3.2 (1.0-4.8) k/uL Monocytes # 0.4 (0-1.0) k/uL Eosinophils # 0.2 (0-0.7) k/uL Basophils # 0.1 (0-0.2) k/uL Sodium 133 L (137-145) mmol/L Potassium 5.2 H (3.5-5.1) mmol/L Chloride 99 (98-107) mmol/L Carbon Dioxide 22 (22-30) mmol/L Anion Gap 12 mmol/L BUN 32 H (9-20) mg/dL Creatinine 1.19 (0.66-1.25) mg/dL Est GFR (CKD-EPI)AfAm 72 (>60 ml/min/1.73 sqM) Est GFR (CKD-EPI)NonAf 63 (>60 ml/min/1.73 sqM) Glucose 205 H (74-99) mg/dL Calcium 9.3 (8.4-10.2) mg/dL Total Bilirubin 0.4 (0.2-1.3) mg/dL AST 23 (17-59) U/L ALT 38 (4-49) U/L Alkaline Phosphatase 68 (38-126) U/L Troponin I <0.012 (0.000-0.034) ng/mL Total Protein 7.1 (6.3-8.2) g/dL Albumin 4.7 (3.5-5.0) g/dL Disposition Clinical Impression: Dizziness Disposition: HOME SELF-CARE Condition: Fair Instructions (If sedation given, give patient instructions): Dizziness (ED) Is patient prescribed a controlled substance at d/c from ED?: No Referrals: Ishaan Varela DO [Primary Care Provider] - 1-2 days Time of Disposition: 05:26
[2024-03-27 04:36] LABS: Basophils # (A) 0.1 k/uL (0-0.2); Basophils % (A) 1 %; Eosinophils # (A) 0.2 k/uL (0-0.7); Eosinophils % (A) 2 %; HCT 48.4 % (39.0-53.0); HGB 15.8 gm/dL (13.0-17.5); Lymphocytes # (A) 3.2 k/uL (1.0-4.8); Lymphocytes % (A) 32 %; MCH 30.3 pg (25.0-35.0); MCHC 32.5 g/dL (31.0-37.0); MCV 93.1 fL (80.0-100.0); Monocytes # (A) 0.4 k/uL (0-1.0); Monocytes % (A) 4 %; Neutrophils % (A) 60 %; Platelet Count 189 k/uL (150-450); RDW 13.5 % (11.5-15.5)
--- NOTE | 2024-03-27 04:44 | CT ---
EXAM: CT Head Without Intravenous Contrast CLINICAL HISTORY: ITS.REASON CT Reason: dizzy TECHNIQUE: Axial computed tomography images of the head/brain without intravenous contrast. CTDI is 49.2 mGy and DLP is 1182.4 mGy-cm. This CT exam was performed using one or more of the following dose reduction techniques: automated exposure control, adjustment of the mA and/or kV according to patient size, and/or use of iterative reconstruction technique. COMPARISON: No relevant prior studies available. FINDINGS: Brain: No hemorrhage or mass effect. Ventricles: No hydrocephalus. Bones/joints: Unremarkable. Soft tissues: Unremarkable. Sinuses: No air fluid level. Mastoid air cells: Clear. IMPRESSION: No acute hemorrhage, hydrocephalus, or mass effect.
[2024-03-27 05:08] LABS: ALT 38 U/L (4-49); AST 23 U/L (17-59); African American GFR (CKD) 72 (>60 ml/min/1.73 sqM); Albumin 4.7 g/dL (3.5-5.0); Alkaline Phosphatase 68 U/L (38-126); Anion Gap 12 mmol/L; Blood Urea Nitrogen 32 mg/dL (9-20); Calcium 9.3 mg/dL (8.4-10.2); Carbon Dioxide 22 mmol/L (22-30); Chloride 99 mmol/L (98-107); Glucose 205 mg/dL (74-99); Non-African American GFR(CKD) 63 (>60 ml/min/1.73 sqM); Potassium 5.2 mmol/L (3.5-5.1); Sodium 133 mmol/L (137-145); Total Bilirubin 0.4 mg/dL (0.2-1.3); Total Protein 7.1 g/dL (6.3-8.2)
[2024-03-27 06:49] VITALS: BP 132/78; PULSE 74
== END 2024-03-27 04:00 | disposition home or self-care (01) ==
LOC: EC 03:30
DX: R42 Dizziness and giddiness (principal); I10 Essential (primary) hypertension; F17.200 Nicotine dependence, unspecified, uncomplicated; Z88.6 Allergy status to analgesic agent; Z88.8 Allergy status to other drugs, medicaments and biological substances
CPT/HCPCS: 36415; 70450; 80053; 84484; 85025; 93005; 99284

== ENCOUNTER 2024-04-02 14:21 | Emergency (ER) | payer MEDICARE ==
[2024-04-02 15:12] LABS: Basophils # (A) 0.1 k/uL (0-0.2); Basophils % (A) 1 %; Eosinophils # (A) 0.1 k/uL (0-0.7); Eosinophils % (A) 1 %; HCT 46.1 % (39.0-53.0); HGB 15.6 gm/dL (13.0-17.5); Lymphocytes # (A) 2.4 k/uL (1.0-4.8); Lymphocytes % (A) 29 %; MCH 31.1 pg (25.0-35.0); MCHC 33.9 g/dL (31.0-37.0); MCV 91.9 fL (80.0-100.0); Mean Platelet Volume 7.6; Monocytes # (A) 0.3 k/uL (0-1.0); Monocytes % (A) 4 %; Neutrophils # (A) 5.3 k/uL (1.3-7.7); Neutrophils % (A) 65 %; Platelet Count 191 k/uL (150-450); RBC 5.01 m/uL (4.30-5.90); RDW 13.4 % (11.5-15.5); WBC 8.2 k/uL (3.8-10.6)
[2024-04-02 15:17] LABS: Prothrombin Time 11.3 sec (10.0-12.5)
[2024-04-02 15:22] LABS: Glucose,Whole Blood 164 mg/dL (70-110)
[2024-04-02 15:22] LABS: ALT 43 U/L (4-49); AST 33 U/L (17-59); African American GFR (CKD) 79 (>60 ml/min/1.73 sqM); Albumin 4.8 g/dL (3.5-5.0); Alkaline Phosphatase 64 U/L (38-126); Anion Gap 14 mmol/L; Blood Urea Nitrogen 27 mg/dL (9-20); Calcium 9.4 mg/dL (8.4-10.2); Carbon Dioxide 20 mmol/L (22-30); Chloride 101 mmol/L (98-107); Glucose 179 mg/dL (74-99); Non-African American GFR(CKD) 68 (>60 ml/min/1.73 sqM); Potassium 4.8 mmol/L (3.5-5.1); Sodium 135 mmol/L (137-145); Total Bilirubin 0.3 mg/dL (0.2-1.3); Total Protein 7.2 g/dL (6.3-8.2)
[2024-04-02 15:23] VITALS: RESP 18
[2024-04-02 16:02] LABS: Appearance,Urine Clear (Clear); Bilirubin,Urine Negative (Negative); Blood,Urine Trace (Negative); Color,Urine Light Yellow; Glucose,Urine (UA) Negative (Negative); Ketones,Urine Negative (Negative); Leukocyte Esterase,Urine Negative (Negative); Mucus,Urine Rare /hpf; Nitrite,Urine Negative (Negative); PH, Urine 5.5 (5.0-8.0); Protein,Urine Trace (Negative); RBC,Urine <1 /hpf (0-5); Specific Gravity,Urine 1.025 (1.001-1.035); Urobilinogen,Urine <2.0 mg/dL (<2.0); WBC,Urine <1 /hpf (0-5)
--- NOTE | 2024-04-02 16:29 | ED ---
General Adult HPI - General Chief complaint: Dizziness Stated complaint: light headed Time Seen by Provider: 04/02/24 14:30 Source: patient Mode of arrival: wheelchair Limitations: no limitations - History of Present Illness Initial comments: 68-year-old male presents emergency department reporting lightheaded and generalized weakness. States that his symptoms have been chronic for over 7 years. He reports to intermittent episodes of room spinning sensation with no provoking factors. He states that he has been seen by several specialists including an ear nose and throat for his dizziness. He states he takes meclizine 3 times a day and if he does not do this, he cannot function. Today the patient had sudden onset of room spinning sensation but he states he was also followed by a lightheadedness. He talked to his son who recommended that he come to the emergency department for evaluation. Patient has had previous imaging of his brain. No history of stroke. He denies having any additional symptoms including chest pain or shortness of breath. No visual disturbance. No lateralizing weakness. No other alleviating, precipitating modifying factors - Related Data Home Medications Medication Instructions Recorded Confirmed Meclizine [Antivert] 25 mg PO DAILY 12/14/22 12/14/22 Previous Rx's Medication Instructions Recorded Fluticasone Nasal [place] [Flonase 2 spray EA NOSTRIL DAILY #7 ml 12/16/22 Nasal [place]] Ipratropium-Albuterol Nebulize 3 ml INHALATION RT-Q2H PRN each 12/16/22 [Duoneb 0.5 mg-3 mg/3 ml Soln] Ipratropium-Albuterol Nebulize 3 ml INHALATION RT-QID #100 each 12/16/22 [Duoneb 0.5 mg-3 mg/3 ml Soln] Losartan [Cozaar] 25 mg PO DAILY #30 tab 12/16/22 Nicotine 14Mg/24Hr Patch [Habitrol] 1 patch TRANSDERM DAILY #30 patch 12/16/22 cefuroxime axetiL [Ceftin] 500 mg PO BID 3 Days #6 tab 12/16/22 predniSONE 10 mg PO DIRECTED #30 tab 12/16/22 Fluticasone Propion/Salmeterol 1 inhalation PO BID 30 Days #1 each 12/17/22 [Advair 100-50 Diskus] Albuterol Inhaler [Ventolin Hfa 2 puff INHALATION QID #8 gm 04/02/24 Inhaler] Blood Sugar Diagnostic [Test 1 strip MISCELLANE QID #100 strip 04/02/24 Strips] Allergies Allergy/AdvReac Type Severity Reaction Status Date / Time aspirin Allergy Swelling Verified 04/02/24 14:27 metformin Allergy Rash/Hives Verified 04/02/24 14:27 Review of Systems ROS Statement: Those systems with pertinent positive or pertinent negative responses have been documented in the HPI. ROS Other: All systems not noted in ROS Statement are negative. Past Medical History Past Medical History: Diabetes Mellitus, Hypertension History of Any Multi-Drug Resistant Organisms: None Reported Past Surgical History: No Surgical Hx Reported Past Psychological History: No Psychological Hx Reported Smoking Status: Current every day smoker Past Alcohol Use History: Occasional Past Drug Use History: None Reported General Exam Limitations: no limitations General appearance: alert, in no apparent distress Head exam: Present: atraumatic, normocephalic, normal inspection Eye exam: Present: normal appearance, PERRL, EOMI. Absent: scleral icterus, conjunctival injection, periorbital swelling ENT exam: Present: normal exam, mucous membranes moist Neck exam: Present: normal inspection. Absent: tenderness, meningismus, lymphadenopathy Respiratory exam: Present: normal lung sounds bilaterally. Absent: respiratory distress, wheezes, rales, rhonchi, stridor Cardiovascular Exam: Present: regular rate, normal rhythm, normal heart sounds. Absent: systolic murmur, diastolic murmur, rubs, gallop, clicks GI/Abdominal exam: Present: soft, normal bowel sounds. Absent: distended, tenderness, guarding, rebound, rigid Extremities exam: Present: normal inspection, full ROM, normal capillary refill. Absent: tenderness, pedal edema, joint swelling, calf tenderness Back exam: Present: normal inspection Neurological exam: Present: alert, oriented X3, CN II-XII intact Psychiatric exam: Present: normal affect, normal mood Skin exam: Present: warm, dry, intact, normal color. Absent: rash Course Vital Signs 04/02/24 04/02/24 04/02/24 14:24 15:21 15:27 Temperature 97.5 F L Pulse Rate 81 77 Pulse Rate [ Sitting Consulting Application Engineer] Pulse Rate [ Standing Consulting Application Engineer ] Pulse Rate [ 73 Supine Consulting Application Engineer] Respiratory 16 18 Rate Blood Pressure 157/80 132/94 Blood Pressure [Right Arm Sitting] Blood Pressure [Right Arm Standing] Blood Pressure 168/83 [Right Arm Supine] O2 Sat by Pulse 96 97 Oximetry 04/02/24 04/02/24 04/02/24 15:29 15:38 18:40 Temperature 98.2 F Pulse Rate 76 Pulse Rate [ 79 Sitting Consulting Application Engineer] Pulse Rate [ 82 Standing Consulting Application Engineer ] Pulse Rate [ Supine Consulting Application Engineer] Respiratory 18 Rate Blood Pressure 134/79 Blood Pressure 142/125 [Right Arm Sitting] Blood Pressure 159/92 [Right Arm Standing] Blood Pressure [Right Arm Supine] O2 Sat by Pulse 96 Oximetry 04/02/24 19:30 Temperature 97.7 F Pulse Rate 77 Pulse Rate [ Sitting Consulting Application Engineer] Pulse Rate [ Standing Consulting Application Engineer ] Pulse Rate [ Supine Consulting Application Engineer] Respiratory 18 Rate Blood Pressure 130/71 Blood Pressure [Right Arm Sitting] Blood Pressure [Right Arm Standing] Blood Pressure [Right Arm Supine] O2 Sat by Pulse 97 Oximetry Medical Decision Making - Medical Decision Making Was pt. sent in by a medical professional or institution (, PA, INSURANCE SALES ASSOCIATE, urgent care, hospital, or snf...) When possible be specific @ -No Did you speak to anyone other than the patient for history (EMS, parent, family, police, friend...)? What history was obtained from this source @ -No Did you review nursing and triage notes (agree or disagree)? Why? @ -I reviewed and agree with nursing and triage notes Were old charts reviewed (outside hosp., previous admission, EMS record, old EKG, old radiological studies, urgent care reports/EKG's, snf records)? Report findings @ -I reviewed patient's chart from March 27 where he was seen for similar complaint Differential Diagnosis (chest pain, altered mental status, abdominal pain women, abdominal pain men, vaginal bleeding, weakness, fever, dyspnea, syncope, he adache, dizziness, GI bleed, back pain, seizure, CVA, palpatations, mental health, musculoskeletal)? @ -Differential Dizziness: Benign paroxysmal positional Vertigo, Meniere's disease, otitis media, acoustic neuroma, vertebrobasilar insufficiency, cerebellar stroke, encephalitis, hypovolemic, arrhythmia, coronary artery syndrome, anemia, this is not meant to be an all-inclusive list EKG interpreted by me (3pts min.). @ -Yes and demonstrates sinus rhythm with a rate of 75. [place] interval 150. QRS 88. QTc of 396. No acute ST segment elevations or depressions X-rays interpreted by me (1pt min.). @ -None done CT interpreted by me (1pt min.). @ -Yes and demonstrates no acute process U/S interpreted by me (1pt. min.). @ -None done What testing was considered but not performed or refused? (CT, X-rays, U/S, labs)? Why? @ -None What meds were considered but not given or refused? Why? @ -None Did you discuss the management of the patient with other professionals (professionals i.e. DrXenia, PA, INSURANCE SALES ASSOCIATE, lab, RT, psych nurse, social work supervisor, ore buyer, teacher, education officer, transplant case manager)? Give summary @ -No Was smoking cessation discussed for >3mins.? @ -No Was critical care preformed (if so, how long)? @ -No Were there social determinants of health that impacted care today? How? (Homele ssness, low income, unemployed, alcoholism, drug addiction, transportation, low edu. Level, literacy, decrease access to med. care, senior living, rehab)? @ -No Was there de-escalation of care discussed even if they declined (Discuss DNR or withdrawal of care, Hospice)? DNR status @ -No What co-morbidities impacted this encounter? (DM, HTN, Smoking, COPD, CAD, Cancer, CVA, ARF, Chemo, Hep., AIDS, mental health diagnosis, sleep apnea, morbid obesity)? @ -Vertigo Was patient admitted / discharged? Hospital course, mention meds given and route, prescriptions, significant lab abnormalities, going to OR and other pertinent info. @ -Upon arrival patient seen and evaluated in bed 4. Thorough history and physical exam was performed. Twelve-lead EKG is obtained. Laboratory studies are conducted. Patient is placed on continuous pulse ox and cardiac monitoring. Patient states that throughout the duration of his stay he has been completely asymptomatic. His symptoms stopped as soon as he came into the emergency department. He does report to similar symptoms in the past and takes meclizine 3 times daily. States that he has done this for close to 8 years. He also admits to being previously seen by ENT. I do feel that the patient should possibly follow-up with neurology for further evaluation of his symptoms. I recommend that he see his primary care doctor within 2 to 4 days. Return for any new or worsening symptoms. Patient agreeable plan was discharged in stable condition Undiagnosed new problem with uncertain prognosis? @ -No Drug Therapy requiring intensive monitoring for toxicity (Heparin, Nitro, Insulin, Cardizem)? @ -No Were any procedures done? @ -No Diagnosis/symptom? @ -Acute on chronic vertigo Acute, or Chronic, or Acute on Chronic? @ -Acute on chronic Uncomplicated (without systemic symptoms) or Complicated (systemic symptoms)? @ -Complicated Side effects of treatment? @ -No Exacerbation, Progression, or Severe Exacerbation? @ -No Poses a threat to life or bodily function? How? (Chest pain, [place], [place], pneumonia, PE, COPD, DKA, ARF, appy, cholecystitis, CVA, Diverticulitis, Homicidal, Suicidal, threat to staff... and all critical care pts) @ -No - Lab Data Result diagrams: 04/02/24 14:56 04/02/24 14:56 Lab Results 04/02/24 04/02/24 04/02/24 Range/Units 14:56 14:56 14:56 WBC 8.2 (3.8-10.6) k/uL RBC 5.01 (4.30-5.90) m/uL Hgb 15.6 (13.0-17.5) gm/dL Hct 46.1 (39.0-53.0) % MCV 91.9 (80.0-100.0) fL MCH 31.1 (25.0-35.0) pg MCHC 33.9 (31.0-37.0) g/dL RDW 13.4 (11.5-15.5) % Plt Count 191 (150-450) k/uL MPV 7.6 Neutrophils % 65 % Lymphocytes % 29 % Monocytes % 4 % Eosinophils % 1 % Basophils % 1 % Neutrophils # 5.3 (1.3-7.7) k/uL Lymphocytes # 2.4 (1.0-4.8) k/uL Monocytes # 0.3 (0-1.0) k/uL Eosinophils # 0.1 (0-0.7) k/uL Basophils # 0.1 (0-0.2) k/uL PT 11.3 (10.0-12.5) sec INR 1.0 (<1.2) Sodium 135 L (137-145) mmol/L Potassium 4.8 (3.5-5.1) mmol/L Chloride 101 (98-107) mmol/L Carbon Dioxide 20 L (22-30) mmol/L Anion Gap 14 mmol/L BUN 27 H (9-20) mg/dL Creatinine 1.11 (0.66-1.25) mg/dL Est GFR (CKD-EPI)AfAm 79 (>60 ml/min/1.73 sqM) Est GFR (CKD-EPI)NonAf 68 (>60 ml/min/1.73 sqM) Glucose 179 H (74-99) mg/dL POC Glucose (mg/dL) (70-110) mg/dL POC Glu Care Aid ID Calcium 9.4 (8.4-10.2) mg/dL Total Bilirubin 0.3 (0.2-1.3) mg/dL AST 33 (17-59) U/L ALT 43 (4-49) U/L Alkaline Phosphatase 64 (38-126) U/L Troponin I (0.000-0.034) ng/mL Total Protein 7.2 (6.3-8.2) g/dL Albumin 4.8 (3.5-5.0) g/dL Urine Color Urine Appearance (Clear) Urine pH (5.0-8.0) Ur Specific [place] (1.001-1.035) Urine Protein (Negative) Urine Glucose (UA) (Negative) Urine Ketones (Negative) Urine Blood (Negative) Urine Nitrite (Negative) Urine Bilirubin (Negative) Urine Urobilinogen (<2.0) mg/dL Ur Leukocyte Esterase (Negative) Urine RBC (0-5) /hpf Urine WBC (0-5) /hpf Urine Mucus (None) /hpf 04/02/24 04/02/24 04/02/24 Range/Units 14:56 15:19 15:21 WBC (3.8-10.6) k/uL RBC (4.30-5.90) m/uL Hgb (13.0-17.5) gm/dL Hct (39.0-53.0) % MCV (80.0-100.0) fL MCH (25.0-35.0) pg MCHC (31.0-37.0) g/dL RDW (11.5-15.5) % Plt Count (150-450) k/uL MPV Neutrophils % % Lymphocytes % % Monocytes % % Eosinophils % % Basophils % % Neutrophils # (1.3-7.7) k/uL Lymphocytes # (1.0-4.8) k/uL Monocytes # (0-1.0) k/uL Eosinophils # (0-0.7) k/uL Basophils # (0-0.2) k/uL PT (10.0-12.5) sec INR (<1.2) Sodium (137-145) mmol/L Potassium (3.5-5.1) mmol/L Chloride (98-107) mmol/L Carbon Dioxide (22-30) mmol/L Anion Gap mmol/L BUN (9-20) mg/dL Creatinine (0.66-1.25) mg/dL Est GFR (CKD-EPI)AfAm (>60 ml/min/1.73 sqM) Est GFR (CKD-EPI)NonAf (>60 ml/min/1.73 sqM) Glucose (74-99) mg/dL POC Glucose (mg/dL) 164 H (70-110) mg/dL POC Glu Care Aid ID Otto Agnieszka Calcium (8.4-10.2) mg/dL Total Bilirubin (0.2-1.3) mg/dL AST (17-59) U/L ALT (4-49) U/L Alkaline Phosphatase (38-126) U/L Troponin I <0.012 (0.000-0.034) ng/mL Total Protein (6.3-8.2) g/dL Albumin (3.5-5.0) g/dL Urine Color Light Yellow Urine Appearance Clear (Clear) Urine pH 5.5 (5.0-8.0) Ur Specific [place] 1.025 (1.001-1.035) Urine Protein Trace H (Negative) Urine Glucose (UA) Negative (Negative) Urine Ketones Negative (Negative) Urine Blood Trace H (Negative) Urine Nitrite Negative (Negative) Urine Bilirubin Negative (Negative) Urine Urobilinogen <2.0 (<2.0) mg/dL Ur Leukocyte Esterase Negative (Negative) Urine RBC <1 (0-5) /hpf Urine WBC <1 (0-5) /hpf Urine Mucus Rare H (None) /hpf Disposition Clinical Impression: Vertigo Disposition: HOME SELF-CARE Condition: Stable Instructions (If sedation given, give patient instructions): Vertigo (ED) Additional Instructions: Please follow-up with your primary care doctor. I recommend that you have an echo of your heart as well as an MRI of your brain. I recommend that you be referred to either ENT or neurology for your vertigo symptoms. Return for any new or worsening symptoms Prescriptions: Blood Sugar Diagnostic [Test Strips] 1 strip MISCELLANE QID #100 strip Albuterol Inhaler [Ventolin Hfa Inhaler] 2 puff INHALATION QID #8 gm Is patient prescribed a controlled substance at d/c from ED?: No Referrals: Yair Mulligan MD [Primary Care Provider] - 1-2 days Time of Disposition: 18:59
--- NOTE | 2024-04-02 18:08 | CT ---
EXAMINATION TYPE: CT angio head neck DATE OF EXAM: 04/02/2024 5:46 PM COMPARISON: Previous CT study 03/27/2024. CLINICAL INDICATION: Male, 68 years old with history of vertiginous; PHH, PT STATES HE FEELS DIZZY AN D WEAK TODAY, STATES THE DIZZINESS COMES AND GOES TECHNIQUE: Axially acquired helical CT angiogram of the head and neck was obtained with contrast. Axi al images are supplemented with 3D reconstructions and MIP images which were post-processed at an in dependent workstation. NASCET criteria used. Contrast used:65cc mL of Isovue 370 with IV Contrast, Oral contrast used: None. CT DLP: 1981.6 mGycm, Automated exposure control for dose reduction was used. FINDINGS: CTA HEAD: No evidence of acute intracranial hemorrhage, mass effect, or midline shift. Periventricular and subc ortical white matter hypoattenuation likely reflecting chronic microvascular ischemic disease. The ve ntricles, sulci, and cisterns are unremarkable. Vertebral arteries: The vertebral arteries are patent. Vertebral artery dominance: Left Basilar artery: The basilar artery is intact. The basilar artery bifurcation is normal. Internal Carotid arteries: The cervical, petrous, cavernous and supraclinoid segments demonstrate no evidence of flow-limiting stenosis HORTENSIA: Patent with no evidence of aneurysm. ACOM: Present without evidence of aneurysm. MCA: Patent with no evidence of aneurysm. PRESCRIPTION CLERK LENSES: Patent with no evidence of aneurysm. PCOM: Hypoplastic bilaterally. Dural sinuses: Patent. CTA NECK: Right Carotid System: The common carotid artery and external carotid artery are patent. The carotid bifurcation demonstrate s calcified atherosclerotic plaque and less than 50% stenosis. The remaining portions of the internal carotid artery demonstrate normal size without significant narrowing. Left Carotid System: The common carotid artery and external carotid artery are patent. The carotid bifurcation demonstrate s noncalcified plaque and less than 50% stenosis. The remaining portions of the internal carotid lobo ry demonstrate normal size without significant narrowing. Vertebral arteries are patent without evidence hemodynamically significant stenosis. There is a three-vessel aortic arch. The origins of the great vessels are patent. No evidence of hemo dynamically significant stenosis. Upper thorax: IMPRESSION: 1. No evidence of dissection of the cervical internal carotid arteries or vertebral arteries. 2. No any evidence of significant stenosis at the carotid bifurcations. 3. No evidence of intracranial high-grade stenosis or intracranial aneurysm. [facility], , 04/02/2024 6:06 PM
[2024-04-02 19:32] VITALS: BP 130/71; PULSE 77; TEMP 97.7
== END 2024-04-02 19:35 | disposition home or self-care (01) ==
LOC: EC 14:21
DX: R42 Dizziness and giddiness (principal); F17.200 Nicotine dependence, unspecified, uncomplicated; Z88.6 Allergy status to analgesic agent; Z88.8 Allergy status to other drugs, medicaments and biological substances
CPT/HCPCS: 36415; 93005; 80053; 84484; 85025; 85610; 81001; 70496; 70498; 99285; Q9967

== ENCOUNTER 2024-05-17 08:20 | Day surgery (SDC) | payer MEDICARE ==
[2024-05-17] MEDS: LACTATED RINGERS 1,000 ML IV ONE (08:37)
[2024-05-17 08:44] LABS: Glucose,Whole Blood 139 mg/dL (70-110)
[2024-05-17 08:46] VITALS: TEMP 97
[2024-05-17] MEDS: LACTATED RINGERS 1,000 ML IV SCH (08:47)
[2024-05-17] MEDS ORDERED: PROPOFOL 10 MG/ML 20 ML VIAL IV ONE (09:24)
[2024-05-17] MEDS ORDERED: PHENYLEPHRINE-0.9% NACL SYG 1,000 MCG/10 ML SYRINGE ONE (09:24)
[2024-05-17] MEDS ORDERED: LIDOCAINE 1% INJ 10MG/ML (20 ML MDV) ONE (09:24)
--- NOTE | 2024-05-17 09:52 | P.PCN ---
Date of Procedure: 05/17/24 Procedure(s) Performed: BRIEF HISTORY: Patient is a 68-year-old pleasant white male scheduled for an elective colonoscopy as a part of screening for colon cancer/positive Cologuard. PROCEDURE PERFORMED: Colonoscopy with snare polypectomy and Endo Clip placement. PREOPERATIVE DIAGNOSIS: Screening for colon cancer/positive Cologuard. IV sedation per Anesthesia. PROCEDURE: After informed consent was obtained, the patient, was brought into the endoscopy unit. IV sedation was administered by Anesthesia under continuous monitoring. Digital rectal examination was normal. Initially the Olympus CF-160 flexible video colonoscope was then inserted in the rectum, gradually advanced into the cecum without any difficulty. Careful examination was performed as the scope was gradually being withdrawn. Ileocecal valve and the appendiceal orifice were visualized and appeared normal. Prep was excellent. Mucosa of the cecum, had a 1 cm linear polyp that was removed by snare polypectomy. In the ascending colon there were 3 polyps measuring between 5 mm 1 cm and 2.5 cm polyp which were removed by snare polypectomy. Following polypectomy Endo Clip was placed on the polypectomy site of the large polyp. Rest of the. Ascending colon, transverse colon, descending colon, normal. The sigmoid colon there was a 2 cm pedunculated polyp at 30 cm from anal verge that was removed by snare polypectomy. Scattered sigmoid diverticulosis seen. Rest of the sigmoid colon, and rectum appeared normal. Retroflexion was performed in the rectum and no lesions were seen. The patient tolerated the procedure well. IMPRESSION: 1 cm linear polyp in the cecum status post snare polypectomy 1 cm, 2.5 cm and a 5 mm ascending colon polyp status post snare polypectomy followed by Endo Clip placement of the large polyp. 2 cm pedunculated sigmoid colon polyp status post polypectomy Scattered sigmoid diverticulosis RECOMMENDATIONS: Findings of this examination were discussed with the patient as well as his family. He was advised to with the biopsy results. If the biopsy reveals adenoma he can have repeat colonoscopy in 3 years..
[2024-05-17 10:13] VITALS: BP 114/74; PULSE 68; RESP 18
== END 2024-05-17 10:44 | disposition home or self-care (01) ==
LOC: ORWHC2ENDO 08:20
PROVIDERS: ATTEND Internal Medicine Gastroenterology
DX: Z12.11 Encounter for screening for malignant neoplasm of colon (principal); D12.0 Benign neoplasm of cecum; D12.2 Benign neoplasm of ascending colon; D12.5 Benign neoplasm of sigmoid colon; K57.30 Diverticulosis of large intestine without perforation or abscess without bleeding; I10 Essential (primary) hypertension; E78.5 Hyperlipidemia, unspecified; J44.9 Chronic obstructive pulmonary disease, unspecified; E11.9 Type 2 diabetes mellitus without complications; Z87.891 Personal history of nicotine dependence; Z88.8 Allergy status to other drugs, medicaments and biological substances; Z88.6 Allergy status to analgesic agent; Z79.51 Long term (current) use of inhaled steroids; Z79.899 Other long term (current) drug therapy
CPT/HCPCS: 88305; 45385; J2003; J2704; J2371

== ENCOUNTER → 2024-07-18 | Outpatient (CLI) | payer MEDICARE ==
--- NOTE | 2024-07-18 09:06 | CTL ---
EXAMINATION TYPE: CT Low Dose Lung DATE OF EXAM ORDERED: 07/18/2024 COMPARISON: CT Low Dose Lung 02/19/2023 CLINICAL INDICATION: Male, 68 years old with history of Z12.2 LUNG CA SCR Z87.891 [employer]; PHH, screening lung CA, Lung cancer screening, History of Smoking/tobacco use. TECHNIQUE: Low dose computed tomography scan was performed through the chest at 1 mm thick sections a nd reconstructed images in multiple planes at 1 mm and [address] DLP: [address] CTDI: 4.0 mGy Automated exposure control for dose reduction was used. CT DIAGNOSTIC QUALITY: Satisfactory FINDINGS: Nodules: No clinically significant pulmonary nodule identified. LUNGS: COPD: Severity: Mild Fibrosis: Severity: None Lymph nodes: None Other findings: None RIGHT PLEURAL SPACE: Effusion: None Calcification: None Thickening: None Pneumothorax: None LEFT PLEURAL SPACE: Effusion: None Calcification: None Thickening: None Pneumothorax: None HEART: Heart Size: Normal Coronary Calcification: None Pericardial Effusion: None OTHER FINDINGS: Upper abdomen: The visualized liver is diffusely hypoattenuating. Bony thorax: Anterior osteophyte at T9-T10. Supraclavicular region: None Other: None IMPRESSION: 1. No clinically significant pulmonary nodule identified. 2. Mild emphysematous changes. 3. Hepatic steatosis. CT LUNG RAD AND CT CHEST RECOMMENDATION: Lung-Rad 1 Negative: Continue annual screening with LDCT in 12 months. S Modifier (other clinically significant findings): None [facility], , 07/18/2024 9:04 AM
== END | disposition home or self-care (01) ==
LOC: RADCTMAIN 08:28
PROVIDERS: ATTEND Internal Medicine
DX: Z12.2 Encounter for screening for malignant neoplasm of respiratory organs (principal); J43.9 Emphysema, unspecified; K76.0 Fatty (change of) liver, not elsewhere classified; Z87.891 Personal history of nicotine dependence
CPT/HCPCS: 71271